=== PATIENT | male | born 1970 | race African-American/Black ===

== ENCOUNTER 2017-06-18 14:52 | Inpatient (IN) | payer BC ==
[2017-06-18] VITALS (8 sets, daily range): BP systolic 152–190; BP diastolic 93–109; PULSE 52–64; RESP 16–18; TEMP 98.1; O2SAT 97–100
[~2017-06-18 14:52] MED LIST: ASPI325T PO; ATOR10TA PO; CARV6.252 PO; LISI30TA44 PO
[2017-06-18] MEDS ORDERED: IOHEXOL 350 MG/ML 10 ML VIAL (for RAD DIAG) IVCONTRAST ONE (14:53)
[2017-06-18] MEDS ORDERED: ASPI-183 PO (15:16)
[2017-06-18] MEDS ORDERED: SODIUM CHLORIDE 0.9% FLUSH 10 ML FLUSH IVF PRN (15:45)
--- NOTE | 2017-06-18 15:56 | PD ---
HPI Chief Complaint: Neuro Symptoms/ Deficits Time Seen by Provider: 15:27 Travel History International Travel<30 days: No Contact w/Intl Traveler<30days: No Traveled to known affect area: No History of Present Illness HPI 47 yo M complains of weakness in the right arm. It was first noticed this morning at 6 am. It then resolved and started again about 5 hours prior to ER arrival. + R shoulder and R neck pain intermittently. No recent excessive use. No similar prior episodes. Last night patient slept on the right side, unusual for him. + Paresthesias with some sensory loss in the hand reported by patient. Timing constant. Severity moderate. PFSH Past Medical History Cardiovascular Problems: Yes (cad) Hypertension: Yes Past Surgical History Cardiac Surgery: Yes (CARDIAC CATH) Social History Alcohol Use: Yes (RARE) Tobacco Use: No (former) Substance Use: No Allergies-Medications (Allergen,Severity, Reaction): Coded Allergies: azithromycin (Unverified Allergy, Severe, 03/31/17) shellfish derived (Unverified Adverse Reaction, Intermediate, SOB, 03/31/17 ) Reported Meds & Prescriptions Reported Meds & Active Scripts Active Reported Aspirin 325 Mg Tab 325 Mg PO DAILY Review of Systems Except as stated in HPI: all other systems reviewed are Neg General / Constitutional: No: Fever Physical Exam Narrative GENERAL: 47 yo M, WNWD, moderate distress neuro deficit SKIN: Warm and dry. HEAD: Atraumatic. Normocephalic. EYES: Pupils equal and round. No scleral icterus. No injection or drainage. ENT: No nasal bleeding or discharge. Mucous membranes pink and moist. NECK: Trachea midline. No JVD. CARDIOVASCULAR: Regular rate and rhythm. RESPIRATORY: No accessory muscle use. Clear to auscultation. Breath sounds equal bilaterally. GASTROINTESTINAL: Abdomen soft, non-tender, nondistended. Hepatic and splenic margins not palpable. MUSCULOSKELETAL: Extremities without clubbing, cyanosis, or edema. No obvious deformities. NEUROLOGICAL: CN III-XII normal. RUE with intact elbow flexion and decreased elbow extension. Hand seed sorter decreased R>L. R wrist flexion decreased. R wrist extension grossly preserved. 2+ Radial artery bilaterally. PSYCHIATRIC: Appropriate mood and affect; insight and judgment normal. Data Data Last Documented VS Vital Signs Date Time Temp Pulse Resp B/P (MAP) Pulse Ox O2 Delivery O2 Flow Rate FiO2 06/18/17 23:00 62 16 163/97 (119) 97 Room Air 06/18/17 15:09 98.1 VS REVIEWED Orders Orders Electrocardiogram (06/18/17 15:32) Complete Blood Count With Diff (06/18/17 15:32) Basic Metabolic Panel (Bmp) (06/18/17 15:32) Drug Screen, Random Urine (06/18/17 15:32) Ct Brain W/O Iv Contrast(Rout) (06/18/17 15:32) Ecg Monitoring (06/18/17 15:32) Iv Access Insert/Monitor (06/18/17 15:32) Oximetry (06/18/17 15:32) Sodium Chloride 0.9% Flush (Ns Flush) (06/18/17 15:45) Hydromorphone Pf Inj (Dilaudid Pf Inj) (06/18/17 16:15) Cta Brain W Iv Contrast W 3d (06/18/17 16:20) Cta Neck W Iv Contrast W 3d (06/18/17 16:20) Iohexol 350 Inj (Omnipaque 350 Inj) (06/18/17 14:53) Admit Order (Ed Use Only) (06/18/17 ) 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 SUSY.Q8H (06/18/17 23:15) Diet Heart Healthy (06/19/17 Breakfast) Activity Oob With Assistance (06/18/17 23:15) Notify Dr: Other (06/18/17 23:15) Consult Neurology (06/18/17 ) Labs Laboratory Tests Test 06/18/17 15:40 06/18/17 18:23 White Blood Count 8.0 TH/MM3 Red Blood Count 4.58 MIL/MM3 Hemoglobin 13.2 GM/DL Hematocrit 39.9 % Mean Corpuscular Volume 87.1 FL Mean Corpuscular Hemoglobin 28.8 PG Mean Corpuscular Hemoglobin Concent 33.1 % Red Cell Distribution Width 12.9 % Platelet Count 172 TH/MM3 Mean Platelet Volume 10.1 FL Neutrophils (%) (Auto) 73.4 % Lymphocytes (%) (Auto) 16.2 % Monocytes (%) (Auto) 8.4 % Eosinophils (%) (Auto) 1.3 % Basophils (%) (Auto) 0.7 % Neutrophils # (Auto) 5.8 TH/MM3 Lymphocytes # (Auto) 1.3 TH/MM3 Monocytes # (Auto) 0.7 TH/MM3 Eosinophils # (Auto) 0.1 TH/MM3 Basophils # (Auto) 0.1 TH/MM3 CBC Comment DIFF FINAL Differential Comment Blood Urea Nitrogen 19 MG/DL Creatinine 1.10 MG/DL Random Glucose 83 MG/DL Calcium Level 8.9 MG/DL Sodium Level 138 MEQ/L Potassium Level 3.4 MEQ/L Chloride Level 102 MEQ/L Carbon Dioxide Level 26.4 MEQ/L Anion Gap 10 MEQ/L Estimat Glomerular Filtration Rate 86 ML/MIN Urine Opiates Screen NEG Urine Barbiturates Screen NEG Urine Amphetamines Screen NEG Urine Benzodiazepines Screen NEG Urine Cocaine Screen NEG Urine Cannabinoids Screen POS MDM Medical Decision Making Medical Screen Exam Complete: Yes Emergency Medical Condition: Yes Medical Record Reviewed: Yes Differential Diagnosis Peripheral palsy, cervical dissection, intracranial mass, TIA, CVA Narrative Course CBC & BMP Diagram 06/18/17 15:40 Calcium Level 8.9 Last Impressions Neck CTA 06/18/17 1620 Signed Impressions: Service Date/Time: Sunday, June 18, 2017 17:43 - CONCLUSION: Normal examination. Diogenes Mata MD Head CTA 06/18/17 1620 Signed Impressions: Service Date/Time: Sunday, June 18, 2017 17:43 - CONCLUSION: Normal examination. Diogenes Mata MD Head CT 06/18/17 1532 Signed Impressions: Service Date/Time: Sunday, June 18, 2017 17:39 - CONCLUSION: 1. No evidence of acute intracranial pathology. No masses are identified. Jose Francisco Palencia MD CTA imaging pending at time of sign out to Dr Haskins. Follow up CTA imaging with plan to discuss case with neurology pending results. Possible peripheral palsy. Additional Instructions: You have a choice when it comes to health care, and we are glad that you chose [facility]. Hopefully, we have met your expectations on today's visit. You are welcome to return to [facility] at any time, as we are committed to meeting the health care needs of our community. Med/Other Pt SpecificInfo: No Change to Meds Disposition: 01 DISCHARGE HOME Condition: Stable Stoney Trevino MD Jun 18, 2017 15:56
[2017-06-18 16:08] LABS: AUTOMATED NEUTROPHIL # 5.8 TH/MM3 (1.8-7.7); BASOPHIL # 0.1 TH/MM3 (0-0.2); BASOPHIL % 0.7 % (0.0-2.0); EOSINOPHIL # 0.1 TH/MM3 (0-0.4); EOSINOPHIL % 1.3 % (0.0-4.0); HEMATOCRIT 39.9 % (39.0-51.0); HEMO FLAGS DIFF FINAL; LYMPH % 16.2 % (9.0-44.0); LYMPHOCYTE # 1.3 TH/MM3 (1.0-4.8); MEAN CELL VOLUME 87.1 FL (80.0-100.0); MEAN CORPUSCULAR HEMOGLOBIN 28.8 PG (27.0-34.0); MEAN CORPUSCULAR HGB CONC 33.1 % (32.0-36.0); MONO % 8.4 % (0.0-8.0); NEUT % 73.4 % (16.0-70.0); PLATELET COUNT 172 TH/MM3 (150-450); RED BLOOD COUNT 4.58 MIL/MM3 (4.50-5.90); RED CELL DISTRIBUTION WIDTH 12.9 % (11.6-17.2)
[2017-06-18] MEDS ORDERED: HYDROmorphone HCL PF 1 MG/ML VIAL IV PUSH ONE (16:15)
[2017-06-18 16:55] LABS: BICARBONATE 26.4 MEQ/L (21.0-32.0); POTASSIUM 3.4 MEQ/L (3.5-5.1)
--- NOTE | 2017-06-18 18:02 | RADRPT ---
EXAM DATE/TIME: 06/18/2017 17:39 [facility] COMPARISON: No previous studies available for comparison. INDICATIONS : General weakness for one day. RADIATION DOSE: 31.38 CTDIvol (mGy) MEDICAL HISTORY : Hypertension. Cardiac. SURGICAL HISTORY : None. ENCOUNTER: Initial ACUITY: 1 day PAIN SCALE: 5/10 LOCATION: Bilateral cranial TECHNIQUE: Multiple contiguous axial images were obtained of the head. Using automated exposure control and adj ustment of the mA and/or kV according to patient size, radiation dose was kept as low as reasonably a chievable to obtain optimal diagnostic quality images. DICOM format image data is available electro nically for review and comparison. FINDINGS: CEREBRUM: The ventricles are normal for age. No evidence of midline shift, mass lesion, hemorrhage or acute in farction. No extra-axial fluid collections are seen. POSTERIOR FOSSA: The cerebellum and brainstem are intact. The 4th ventricle is midline. The cerebellopontine angle i s unremarkable. EXTRACRANIAL: The visualized portion of the orbits is intact. SKULL: The calvaria is intact. No evidence of skull fracture. CONCLUSION: 1. No evidence of acute intracranial pathology. No masses are identified. Jose Francisco Palencia MD on June 18, 2017 at 17:59 Board Certified Radiologist. This report was verified electronically.
--- NOTE | 2017-06-18 19:13 | RADRPT ---
EXAM DATE/TIME: 06/18/2017 17:43 [facility] COMPARISON: CT BRAIN W/O CONTRAST, June 18, 2017, 17:39. INDICATIONS : Right sided numbness. IV CONTRAST: 100 cc Omnipaque 350 (iohexol) IV ; Cumulative dose for multiple exams. RADIATION DOSE: 26.57 CTDIvol (mGy) ; Combined studies MEDICAL HISTORY : Cardiovascular disease. Hypertension. SURGICAL HISTORY : None. ENCOUNTER: Initial ACUITY: 1 day PAIN SCALE: 4/10 LOCATION: cranial Elevated flow velocities and ICA/CCA ratios have been found to correlate with increased degrees of vessel stenosis, calculated as percentage of diameter relative to a normal segment of distal ICA/CCA. TECHNIQUE: Volumetric scanning was performed using a multirow detector CT scanner. The data was post processed with a variety of visualization algorithms including full-volume maximum intensity projection, multip lanar sliding thin-slab reformation, curved-planar reformation, and surface-rendering techniques. Us ing automated exposure control and adjustment of the mA and/or kV according to patient size, radiatio n dose was kept as low as reasonably achievable to obtain optimal diagnostic quality images. DICOM f ormat image data is available electronically for review and comparison. FINDINGS: AORTIC ARCH: There is a three-vessel origin of the great vessels from the aorta. No evidence of ostial narrowing. RIGHT CAROTID: The common carotid artery is intact. The carotid bulb has a normal configuration without ulceration o r narrowing. The internal carotid artery lumen is smooth without stenosis. The external carotid ag ry is intact. LEFT CAROTID: The common carotid artery is intact. The carotid bulb has a normal configuration without ulceration or narrowing. The internal carotid artery lumen is smooth without stenosis. The external carotid ar merlene is intact. VERTEBRALS: The vertebral arteries have a symmetric diameter. No stenotic lesions are seen. CONCLUSION: Normal examination. Diogenes Mata MD on June 18, 2017 at 19:11 Board Certified Radiologist. This report was verified electronically.
--- NOTE | 2017-06-18 19:14 | RADRPT ---
EXAM DATE/TIME: 06/18/2017 17:43 [facility] COMPARISON: CTA CAROTID ARTERIES W 3D RECON, June 18, 2017, 17:43. CT BRAIN W/O CONTRAST, June 18, 2017, 17:39. INDICATIONS : Right sided weakness. IV CONTRAST: 100 cc Omnipaque 350 (iohexol) IV ; Cumulative dose for multiple exams. RADIATION DOSE: 26.57 CTDIvol (mGy) ; Combined studies MEDICAL HISTORY : Cardiovascular disease. Hypertension. SURGICAL HISTORY : None. ENCOUNTER: Initial ACUITY: 1 day PAIN SCALE: 4/10 LOCATION: cranial TECHNIQUE: Volumetric scanning was performed using a multi-row detector CT scanner. The data was post processed with a variety of visualization algorithms including full volume maximum intensity projection, multi -planar sliding thin slab reformation, curved planar reformation, and surface rendering techniques. Using automated exposure control and adjustment of the mA and/or kV according to patient size, radiat ion dose was kept as low as reasonably achievable to obtain optimal diagnostic quality images. DICO M format image data is available electronically for review and comparison. FINDINGS: There is excellent visualization of the major intracranial arteries out to the second-order branch ve ssels. There is no evidence for aneurysm, vessel truncation or stenosis, and no evidence for vascula r malformation. CONCLUSION: Normal examination. Diogenes Mata MD on June 18, 2017 at 19:12 Board Certified Radiologist. This report was verified electronically.
[2017-06-18] MEDS ORDERED: GADODIAMIDE PF 287 MG/ML 20 ML VIAL (for RAD MRI) IVCONTRAST ONE (23:19)
[2017-06-18] MEDS ORDERED: NALOXONE HCL 0.4 MG/ML AMP IV PUSH PRN (23:45)
[2017-06-18] MEDS ORDERED: SODIUM CHLORIDE 0.9% FLUSH 10 ML FLUSH IV FLUSH PRN (23:45)
[2017-06-18] MEDS ORDERED: ONDANSETRON HCL 4 MG/2 ML VIAL IVP PRN (23:45)
[2017-06-19] VITALS (11 sets, daily range): BP systolic 109–160; BP diastolic 65–96; PULSE 55–72; RESP 16–18; TEMP 97.9–98.5; O2SAT 95–98
--- NOTE | 2017-06-19 00:53 | PD ---
Physical Exam Date Seen by Provider: Jun 18, 2017 Time Seen by Provider: 22:00 Narrative accepted in transfer of care from Dr Trevino GENERAL: Well-developed well-nourished male in no acute distress no respiratory distress. SKIN: Warm and dry. NECK: Trachea midline. No JVD. MUSCULOSKELETAL: Extremities without clubbing, cyanosis, or edema. No obvious deformities. Intact range of motion of bilateral upper extremities at shoulders with internal/external rotation abduction and abduction flexion and extension; intact range of motion at the elbows bilaterally with flexion extension pronation and supination. Decreased range of motion secondary to effort and weakness per patient of bilateral wrists with wrist extension right greater than left wrist flexion intact decreased senior ui designer strength of the right hand minor decrease in senior ui designer strength of the left hand capillary refill brisk and less than 2 seconds per digit is redness no edema no increased warmth no pallor no coolness radial and ulnar pulses are 2+ to palpation bilaterally no tenderness to palpation of the muscle belly and muscle bellies are soft to palpation no soft tissue swelling and no firmness bilaterally. No deformity is noted. Bilateral lower extremity exam is found to be in normal range grossly NEUROLOGICAL: Awake and alert. No obvious cranial nerve deficits. Motor grossly within normal limits. Five out of 5 muscle strength in the legs right senior ui designer and wrist extension 4/5, left senior ui designer and wrist extension 4-5/5. Normal speech. PSYCHIATRIC: Appropriate mood and affect; insight and judgment normal. Data Data Last Documented VS Vital Signs Date Time Temp Pulse Resp B/P (MAP) Pulse Ox O2 Delivery O2 Flow Rate FiO2 06/18/17 23:00 62 16 163/97 (119) 97 Room Air 06/18/17 15:09 98.1 Orders Orders Electrocardiogram (06/18/17 15:32) Complete Blood Count With Diff (06/18/17 15:32) Basic Metabolic Panel (Bmp) (06/18/17 15:32) Drug Screen, Random Urine (06/18/17 15:32) Ct Brain W/O Iv Contrast(Rout) (06/18/17 15:32) Ecg Monitoring (06/18/17 15:32) Iv Access Insert/Monitor (06/18/17 15:32) Oximetry (06/18/17 15:32) Sodium Chloride 0.9% Flush (Ns Flush) (06/18/17 15:45) Hydromorphone Pf Inj (Dilaudid Pf Inj) (06/18/17 16:15) Cta Brain W Iv Contrast W 3d (06/18/17 16:20) Cta Neck W Iv Contrast W 3d (06/18/17 16:20) Iohexol 350 Inj (Omnipaque 350 Inj) (06/18/17 14:53) Admit Order (Ed Use Only) (06/18/17 ) 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 Installer / 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 SUSY.Q8H (06/18/17 23:15) Diet Heart Healthy (06/19/17 Breakfast) Activity Oob With Assistance (06/18/17 23:15) Notify Dr: Other (06/18/17 23:15) Consult Neurology (06/18/17 ) Labs Laboratory Tests Test 06/18/17 15:40 06/18/17 18:23 White Blood Count 8.0 TH/MM3 Red Blood Count 4.58 MIL/MM3 Hemoglobin 13.2 GM/DL Hematocrit 39.9 % Mean Corpuscular Volume 87.1 FL Mean Corpuscular Hemoglobin 28.8 PG Mean Corpuscular Hemoglobin Concent 33.1 % Red Cell Distribution Width 12.9 % Platelet Count 172 TH/MM3 Mean Platelet Volume 10.1 FL Neutrophils (%) (Auto) 73.4 % Lymphocytes (%) (Auto) 16.2 % Monocytes (%) (Auto) 8.4 % Eosinophils (%) (Auto) 1.3 % Basophils (%) (Auto) 0.7 % Neutrophils # (Auto) 5.8 TH/MM3 Lymphocytes # (Auto) 1.3 TH/MM3 Monocytes # (Auto) 0.7 TH/MM3 Eosinophils # (Auto) 0.1 TH/MM3 Basophils # (Auto) 0.1 TH/MM3 CBC Comment DIFF FINAL Differential Comment Blood Urea Nitrogen 19 MG/DL Creatinine 1.10 MG/DL Random Glucose 83 MG/DL Calcium Level 8.9 MG/DL Sodium Level 138 MEQ/L Potassium Level 3.4 MEQ/L Chloride Level 102 MEQ/L Carbon Dioxide Level 26.4 MEQ/L Anion Gap 10 MEQ/L Estimat Glomerular Filtration Rate 86 ML/MIN Urine Opiates Screen NEG Urine Barbiturates Screen NEG Urine Amphetamines Screen NEG Urine Benzodiazepines Screen NEG Urine Cocaine Screen NEG Urine Cannabinoids Screen POS MDM Medical Record Reviewed: Yes Supervised Visit with YRN: No Interpretation(s) Last Impressions Neck CTA 06/18/17 1620 Signed Impressions: Service Date/Time: Sunday, June 18, 2017 17:43 - CONCLUSION: Normal examination. Diogenes Mata MD Head CTA 06/18/17 1620 Signed Impressions: Service Date/Time: Sunday, June 18, 2017 17:43 - CONCLUSION: Normal examination. Diogenes Mata MD Head CT 06/18/17 1532 Signed Impressions: Service Date/Time: Sunday, June 18, 2017 17:39 - CONCLUSION: 1. No evidence of acute intracranial pathology. No masses are identified. Jose Francisco Palencia MD Differential Diagnosis accepted in transfer of care from Dr Trevino; please refer to his dictation Narrative Course accepted in transfer of care from Dr Trevino --follow up on pendnig CTA brain and neck with results to neurologist Dr Rodríguez CTA brain and neck "normal" per reading radiologist --this is shared with Dr Rodríguez --recommends admission with consult to Dr Rodríguez Physician Communication Physician Communication discussed with Dr Rodríguez; discussed with Dr Caballero Diagnosis Primary Impression: Bilateral arm weakness Admitting Information Admitting Physician Requests: Observation Additional Instruction: You have a choice when it comes to health care, and we are glad that you chose [facility]. Hopefully, we have met your expectations on today's visit. You are welcome to return to [facility] at any time, as we are committed to meeting the health care needs of our community. Disposition: 01 DISCHARGE HOME Condition: Stable Татьяна Haskins MD Jun 19, 2017 00:53
[2017-06-19] MEDS ORDERED: cloNIDine HCL 0.2 MG TAB PO PRN (01:15)
--- NOTE | 2017-06-19 04:07 | HHI.HP ---
HPI Service [facility] Primary Care Physician Gelacio Deal, Admission Diagnosis Bilateral arm weakness Diagnoses: Travel History International Travel<30 Days: No Contact w/Intl Traveler <30 Da: No Traveled to Known Affected Are: No History of Present Illness 47-year-old male presents with a 1 day history of bilateral upper extremity weakness. The patient states that around 6:30 yesterday morning he started having sharp pains in his bilateral shoulders which has occurred before. He then states that he noticed that both of his hands and forearms became weak and he was no longer able to lift anything or close his hands. This is a new symptom for him. He continues to have problems with extension of his right fingers and has significant decreased invas tech strength. He reports the pain in his shoulders is still present. Review of Systems Denies fever or chills Denies blurry vision, otorrhea, rhinorrhea Denies sore throat and cough No chest pain, palpitations, shortness of breath No abdominal pain Denies constipation/diarrhea/nausea/vomiting Denies muscle pain/weakness No rashes Past Family Social History Past Medical History History of hypertension although patient is now off all medications History of hyperlipidemia, patient no longer takes a statin Past Surgical History Cardiac catheterization 2 years ago, no stents placed Vasectomy Reported Medications Prescription THC for hypertension Allergies: Coded Allergies: azithromycin (Unverified Allergy, Severe, 03/31/17) shellfish derived (Unverified Adverse Reaction, Intermediate, SOB, 03/31/17 ) Family History Mother is prediabetic. Father with previous SC, hypertension Social History Quit smoking in 2010 (15 pack year history). Occasional alcohol. Prescription marijuana. Denies other illicit drugs Physical Exam Vital Signs Vital Signs Date Time Temp Pulse Resp B/P (MAP) Pulse Ox O2 Delivery O2 Flow Rate FiO2 06/19/17 03:37 68 16 136/81 (99) 96 Room Air 06/19/17 02:30 72 16 154/96 (115) 96 Room Air 06/19/17 01:30 72 16 157/96 (116) 96 Room Air 06/18/17 23:00 62 16 163/97 (119) 97 Room Air 06/18/17 22:00 54 16 158/94 (115) 99 Room Air 06/18/17 21:00 60 16 152/95 (114) 98 Room Air 06/18/17 20:00 60 16 161/97 (118) 100 Room Air 06/18/17 17:58 18 06/18/17 17:57 64 18 157/93 (114) 99 Room Air 06/18/17 16:48 54 16 190/109 (136) 98 Room Air 06/18/17 15:37 17 100 Room Air 06/18/17 15:34 55 17 100 Room Air 06/18/17 15:09 98.1 52 16 181/108 (132) 97 Physical Exam GENERAL: Nilda male lying in bed SKIN: No rashes, ecchymoses or lesions. Cool and dry. HEAD: Atraumatic. Normocephalic. No temporal or scalp tenderness. EYES: Pupils equal round and reactive. Extraocular motions intact. No scleral icterus. No injection or drainage. ENT: Nose without bleeding, purulent drainage or septal hematoma. Throat without erythema, tonsillar hypertrophy or exudate. Uvula midline. Airway patent. NECK: Trachea midline. No JVD or lymphadenopathy. Supple, nontender, no meningeal signs. CARDIOVASCULAR: Regular rate and rhythm without murmurs, gallops, or rubs. RESPIRATORY: Clear to auscultation. Breath sounds equal bilaterally. No wheezes , rales, or rhonchi. GASTROINTESTINAL: Abdomen soft, non-tender, nondistended. No hepato-splenomegaly , or palpable masses. No guarding. MUSCULOSKELETAL: Extremities without clubbing, cyanosis, or edema. No joint tenderness, effusion, or edema noted. No calf tenderness. NEUROLOGICAL: Awake and alert. Cranial nerves II through XII intact. Normal speech. Patient with 2/5 invas tech strength of left hand and 3/5 invas tech strength right hand. Unable to fully extend fingers on right hand. 3/5 biceps strength. Unable to fully extend arms at the shoulders. Lower extremities within normal limits. Laboratory Laboratory Tests Test 06/18/17 15:40 06/18/17 18:23 White Blood Count 8.0 Red Blood Count 4.58 Hemoglobin 13.2 Hematocrit 39.9 Mean Corpuscular Volume 87.1 Mean Corpuscular Hemoglobin 28.8 Mean Corpuscular Hemoglobin Concent 33.1 Red Cell Distribution Width 12.9 Platelet Count 172 Mean Platelet Volume 10.1 Neutrophils (%) (Auto) 73.4 Lymphocytes (%) (Auto) 16.2 Monocytes (%) (Auto) 8.4 Eosinophils (%) (Auto) 1.3 Basophils (%) (Auto) 0.7 Neutrophils # (Auto) 5.8 Lymphocytes # (Auto) 1.3 Monocytes # (Auto) 0.7 Eosinophils # (Auto) 0.1 Basophils # (Auto) 0.1 CBC Comment DIFF FINAL Differential Comment Blood Urea Nitrogen 19 Creatinine 1.10 Random Glucose 83 Calcium Level 8.9 Sodium Level 138 Potassium Level 3.4 Chloride Level 102 Carbon Dioxide Level 26.4 Anion Gap 10 Estimat Glomerular Filtration Rate 86 Urine Opiates Screen NEG Urine Barbiturates Screen NEG Urine Amphetamines Screen NEG Urine Benzodiazepines Screen NEG Urine Cocaine Screen NEG Urine Cannabinoids Screen POS Result Diagram: 06/18/17 1540 06/18/17 1540 Caprini VTE Risk Assessment Caprini VTE Risk Assessment: No/Low Risk (score <= 1) Caprini Risk Assessment Model Point Value = 1 Point Value = 2 Point Value = 3 Point Value = 5 Age 41-60 Minor surgery BMI > 25 kg/m2 Swollen legs Varicose veins or History of unexplained or recurrent spontaneous Oral contraceptives or hormone replacement Sepsis (< 1 month) Serious lung disease, including pneumonia (< 1 month) Abnormal pulmonary function Acute myocardial infarction Congestive heart failure (< 1 month) History of inflammatory bowel disease Medical patient at bed rest Age 61-74 Arthroscopic surgery Major open surgery (> 45 min) Laparoscopic surgery (> 45 min) Malignancy Confined to bed (> 72 hours) Immobilizing plaster cast Central venous access Age >= 75 History of VTE Family history of VTE Factor V Leiden Prothrombin [id number] Lupus anticoagulant Anticardiolipin antibodies Elevated serum homocysteine Heparin-induced thrombocytopenia Other congenital or acquired thrombophilia Stroke (< 1 month) Elective arthroplasty Hip, pelvis, or leg fracture Acute spinal cord injury (< 1 month) Prophylaxis Regimen Total Risk Factor Score Risk Level Prophylaxis Regimen 0-1 Low Early ambulation 2 Moderate Order ONE of the following: *Sequential Compression Device (SCD) *Heparin 5000 units SQ BID 3-4 Higher Order ONE of the following medications: *Heparin 5000 units SQ TID *Enoxaparin/Lovenox 40 mg SQ daily (WT < 150 kg, CrCl > 30 mL/min) *Enoxaparin/Lovenox 30 mg SQ daily (WT < 150 kg, CrCl > 10-29 mL/min) *Enoxaparin/Lovenox 30 mg SQ BID (WT < 150 kg, CrCl > 30 mL/min) AND/OR *Sequential Compression Device (SCD) 5 or more Highest Order ONE of the following medications: *Heparin 5000 units SQ TID (Preferred with Epidurals) *Enoxaparin/Lovenox 40 mg SQ daily (WT < 150 kg, CrCl > 30 mL/min) *Enoxaparin/Lovenox 30 mg SQ daily (WT < 150 kg, CrCl > 10-29 mL/min) *Enoxaparin/Lovenox 30 mg SQ BID (WT < 150 kg, CrCl > 30 mL/min) AND *Sequential Compression Device (SCD) Assessment and Plan Assessment and Plan 47-year-old male presents with a 1 day history of bilateral hand weakness 1. Bilateral hand weakness Head CT, neck CTA of the head CTA within normal limits Consulted neurology, Dr. Rodríguez request that the patient be admitted for further workup Appreciate recommendations 2. Hypertension Patient states his blood pressure at home is normally not high however he has been hypertensive since his arrival Controlled with when necessary clonidine yet Will start Bystolic Patient will need to follow-up with his primary care physician regarding his hypertension FEN Heart healthy diet Monitor electrolytes SCDs An Caballero MD Jun 19, 2017 04:07
[2017-06-19 08:21] LABS: AUTOMATED NEUTROPHIL # 3.2 TH/MM3 (1.8-7.7); BASOPHIL # 0.1 TH/MM3 (0-0.2); BASOPHIL % 1.1 % (0.0-2.0); EOSINOPHIL # 0.2 TH/MM3 (0-0.4); EOSINOPHIL % 3.6 % (0.0-4.0); HEMATOCRIT 40.1 % (39.0-51.0); HEMO FLAGS DIFF FINAL; LYMPH % 26.6 % (9.0-44.0); LYMPHOCYTE # 1.4 TH/MM3 (1.0-4.8); MEAN CELL VOLUME 86.9 FL (80.0-100.0); MEAN CORPUSCULAR HEMOGLOBIN 29.2 PG (27.0-34.0); MEAN CORPUSCULAR HGB CONC 33.6 % (32.0-36.0); MONO % 9.7 % (0.0-8.0); PLATELET COUNT 157 TH/MM3 (150-450); RED BLOOD COUNT 4.61 MIL/MM3 (4.50-5.90); RED CELL DISTRIBUTION WIDTH 13.1 % (11.6-17.2); WHITE BLOOD COUNT 5.4 TH/MM3 (4.0-11.0)
[2017-06-19 08:44] LABS: BICARBONATE 26.1 MEQ/L (21.0-32.0); POTASSIUM 3.7 MEQ/L (3.5-5.1)
[2017-06-19 08:47] LABS: HDL CHOLESTEROL 44.7 MG/DL (40.0-60.0)
[2017-06-19] MEDS: SODIUM CHLORIDE 0.9% FLUSH 10 ML FLUSH IV FLUSH SCH ×2 (09:02→20:45)
[2017-06-19] MEDS: NEBIVOLOL 5 MG TAB PO SCH (09:02)
--- NOTE | 2017-06-19 10:45 | HHI.PR ---
Subjective Remarks Follow up for BUE numbness/weakness. 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 He states he couldn't stock controller or lift anything. He called his who advised him to go to the ER. 911 was called. He states he did developed diffuse posterior neck pain while in the ambulance. Denies any back pain or lower extremity weakness/numbness. He is able to ambulate without difficulty. Denies any headache, blurred vision, or slurred speech. Denies any recent fevers/chills, cough, congestion, sore throat , or nausea/vomiting. This has never happened before. Currently he is seen in observation unit, and complains of continued bilateral upper extremity weakness and mild paresthesias. He states the right arm is worse than the left. He does feel his symptoms have mildly improved compared to yesterday. He has no other medical complaints at this time. Objective Vitals Vital Signs Date Time Temp Pulse Resp B/P (MAP) Pulse Ox O2 Delivery O2 Flow Rate FiO2 06/19/17 07:24 98.3 61 18 118/79 (92) 95 06/19/17 05:03 98.1 62 17 134/89 (104) 95 06/19/17 03:45 60 06/19/17 03:37 68 16 136/81 (99) 96 Room Air 06/19/17 02:30 72 16 154/96 (115) 96 Room Air 06/19/17 01:30 72 16 157/96 (116) 96 Room Air 06/18/17 23:00 62 16 163/97 (119) 97 Room Air 06/18/17 22:00 54 16 158/94 (115) 99 Room Air 06/18/17 21:00 60 16 152/95 (114) 98 Room Air 06/18/17 20:00 60 16 161/97 (118) 100 Room Air 06/18/17 17:58 18 06/18/17 17:57 64 18 157/93 (114) 99 Room Air 06/18/17 16:48 54 16 190/109 (136) 98 Room Air 06/18/17 15:37 17 100 Room Air 06/18/17 15:34 55 17 100 Room Air 06/18/17 15:09 98.1 52 16 181/108 (916) 23 Result Diagram: 06/19/17 0802 06/19/17 0802 Imaging Last Impressions Neck CTA 06/18/17 1620 Signed Impressions: Service Date/Time: Sunday, June 18, 2017 17:43 - CONCLUSION: Normal examination. Diogenes Mata MD Head CTA 06/18/17 1620 Signed Impressions: Service Date/Time: Sunday, June 18, 2017 17:43 - CONCLUSION: Normal examination. Diogenes Mata MD Head CT 06/18/17 1532 Signed Impressions: Service Date/Time: Sunday, June 18, 2017 17:39 - CONCLUSION: 1. No evidence of acute intracranial pathology. No masses are identified. Jose Francisco Palencia MD Objective Remarks GENERAL: Well-nourished, well-developed middle aged male patient in [facility]. SKIN: Warm and dry. No rash. HEENT: Normocephalic. Atraumatic.Pupils equal and round. Mucous membranes pink and moist. NECK: Supple. Trachea midline. CARDIOVASCULAR: Regular rate and rhythm. S1, S2 noted. No murmur appreciated. RESPIRATORY: No accessory muscle use. Clear to auscultation. Breath sounds equal bilaterally. GASTROINTESTINAL: Abdomen soft, non-tender, nondistended. Normoactive bowel sounds x4. MUSCULOSKELETAL: No obvious deformities. Extremities without clubbing, cyanosis , or edema. NEUROLOGICAL: Awake and alert. No obvious cranial nerve deficits. 3/5 strength of bilateral upper extremities, worse with stock controller strength and slightly worse with RUE compared to the LUE. 5/5 muscle strength in bilateral lower extremities. Bilateral upper and lower extremity sensation equal and intact. Normal speech. No pronator drift. PSYCHIATRIC: Appropriate mood and affect; insight and judgment normal. Medications and IVs Current Medications Medications (Trade) Dose Ordered Sig/Ryan Route Start Time Stop Time Status Last Admin (NS Flush) 2 ml UNSCH PRN IV FLUSH 06/18/17 23:45 (NS Flush) 2 ml BID IV FLUSH 06/19/17 09:00 06/19/17 09:02 (Tylenol) 650 mg Q4H PRN PO 06/18/17 23:45 (Zofran Inj) 4 mg Q6H PRN IVP 06/18/17 23:45 (Narcan Inj) 0.4 mg UNSCH PRN IV PUSH 06/18/17 23:45 (Catapres) 0.2 mg Q6H PRN PO 06/19/17 01:15 (Bystolic) 5 mg DAILY PO 06/19/17 09:00 06/19/17 09:02 A/P Problem List: (1) Bilateral arm weakness ICD Code: R29.898 - Other symptoms and signs involving the musculoskeletal system Status: Acute Assessment and Plan 47-year-old male with no significant past medical history presents with a 1 day history of bilateral upper extremity weakness and numbness Bilateral Upper Extremity Weakness/Numbness: unclear etiology, rule out CVA vs cervical spine etiology. -Head CT and Head/Neck CTA images reviewed, no acute findings. -Consult neurology, Dr. Rodríguez contacted from ER, recommended admission for further work up -Continue neuro checks -Consult PT/OT -consider C-spine MRI, will defer to neurology Accelerated Hypertension: BP 190/109 in the ED. Patient denies history of hypertension at home although BP has been elevated here, possibly stress/ hospital induced. -patient started on Bystolic 5mg bid however BP improved prior to initiating antihypertensive -continue to monitor BP, adjust antihypertensive as needed -continue clonidine prn -needs outpatient f/up with PCP Hyperlipidemia: lipid panel revealed elevated cholesterol 212 and LDL 141 -will start on pravastatin 20mg hs -needs outpatient f/up with PCP DVT Prophylaxis: teds/SCDs Discharge Planning Discharge pending PT/OT evaluation, neuro evaluation, and further clinical improvement. Vicky Jasso PA-C Jun 19, 2017 10:45
--- NOTE | 2017-06-19 12:35 | RADRPT ---
EXAM DATE/TIME: 06/19/2017 11:34 [facility] COMPARISON: No previous studies available for comparison. INDICATIONS : Bilateral upper extremity pain. CONTRAST: 13 cc Omniscan (gadodiamide) IV MEDICAL HISTORY : Hypertension. Cardiovascular disease SURGICAL HISTORY : None. ENCOUNTER: Initial ACUITY: 1 day PAIN SCORE: 5/10 LOCATION: [facility] TECHNIQUE: Multiplanar, multisequence MRI examination of the cervical spine was performed. FINDINGS: No fractures or subluxations are seen of the cervical spine. Vertebral bodies have normal height. Vis ualized portions of the posterior fossa are grossly unremarkable. C2-C3: The disc is desiccated but otherwise within normal limits. Mild ossification of the posterior longitu dinal ligament noted and very mild bilateral uncovertebral and facet osteoarthritis. No foraminal or spinal stenosis. C3-C4: The disc is desiccated and has moderate loss of height. Reactive appearing endplate marrow edema. The re is a small, broad/diffuse posterior disc osteophyte complex and mild to moderate bilateral uncover tebral and facet osteoarthritis. There is mild effacement of the anterior aspect of the thecal sac wi thout cord compression or cord signal abnormality. There is mild bilateral foraminal stenosis. C4-C5: The disc is desiccated and has moderate loss of height. There is reactive appearing endplate marrow e salvador. A small, broad/diffuse disc osteophyte complex is present and there is moderate bilateral uncov ertebral and facet osteoarthritis. Mild spinal stenosis without cord compression or cord signal abnor mality. There is mild to moderate right and mild left foraminal stenosis. C5-C6: The disc is desiccated and has severe loss of height. Mild endplate marrow edema noted. Moderate, bro ad/diffuse disc osteophyte complex present and there is moderate to severe bilateral uncovertebral an d facet osteoarthritis. There is mild to moderate spinal stenosis without cord compression in the kavin ged position. There is moderate to severe right and severe left foraminal stenosis. C6-C7: The disc is desiccated and has severe loss of height. There is reactive appearing endplate marrow madhuri ma. Small, broad/diffuse disc osteophyte complex present and there is right greater than left uncover tebral and facet osteoarthritis. There is mild spinal stenosis without cord compression. There is mod erate right and mild left foraminal stenosis. C7-T1: The thecal sac has a normal configuration. There is no evidence of disc herniation or spinal canal s tenosis. The neural foramina are patent bilaterally. Patchy T2 central cord signal abnormality seen from C3/C4 through C7/T1 the, likely edema or myelomal acia. Reactive marrow edema and mild enhancement of the vertebral body endplates from C3/C4-C6/C7. There is no abnormal enhancement otherwise. CONCLUSION: 1. Multilevel cervical spine degenerative changes as detailed above. 2. High-grade bilateral foraminal stenosis at C5/C6. Also considerable right foraminal stenosis at C6 /C7. 3. Mild to moderate spinal stenosis at C5/C6 and mild spinal stenosis at C3/C4, C4/C5 and C6/C7. No c ord compression in the imaged position but there is patchy cord edema and/or myelomalacia from C3/C4 through C7/T1. 4. Marrow edema and reactive enhancement of the vertebral body endplates from C3/C4-C6/C7. No fractur e or subluxation. 5. Incidentally seen marked tortuosity of the internal carotid arteries. Gelacio Kunz MD on June 19, 2017 at 12:22 Board Certified Radiologist. This report was verified electronically.
[2017-06-19] MEDS: ACETAMINOPHEN 325 MG TAB PO PRN ×2 (12:52→23:37)
--- NOTE | 2017-06-19 13:34 | MB ---
cc: ALINA IQBAL MD DATE OF CONSULTATION 06/19/17 REASON FOR CONSULTATION Arm weakness. HISTORY OF PRESENT ILLNESS Mr. Glover is a 47-year-old -[place] male who presents to [facility] Emergency Room for 1 day history of a brief episode of severe lower back pain associated with bilateral upper extremity weakness, right greater than the left. The patient states that he has had episodes of brief short lasting sudden sharp pain for 2 years duration where he would suddenly feel severe pain between the shoulder blades burning in character that lasts 10- 15 seconds, tends to radiate down to the both upper extremities followed by mild weakness and typically, "goes away." He usually try to bend over to relieve the pain in the arms. The patient cannot think of any relation or correlation to a certain movement, exercise, dehydration or any other triggering factor. The who was at the bedside states that he has had neck trauma in the past. With no sequela. The patient denies chronic neck pain. He only endorses those brief episodes that are infrequent and he states that he talked about it with the primary care physician but being so infrequent made him just not follow it up. The also states that may be sometimes they are stress-related. During the episode the patient other than the pain the patient feels a racing heart. Denies acid reflux, chest pain or profuse sweating during the episode. What made him come yesterday is the episode was recurrent and it was more intense, however short-lived and this was followed by arm weakness, mainly the right upper extremity with pain in the elbow and right hand. He denies sensory symptoms, sphincter control disturbances and he also endorses pain in both shoulders. REVIEW OF SYSTEMS A 12-point review of systems negative except for what is stated in the HPI. PAST MEDICAL HISTORY Hypertension, hyperlipidemia, "blood clots." PAST SURGICAL HISTORY Cardiac catheterization 2 years ago with no stents placed. Vasectomy. MEDICATIONS THC for hypertension. ALLERGIES AZITHROMYCIN AND SHELLFISH. FAMILY HISTORY Mother is prediabetic, father [place] and hypertension. SOCIAL HISTORY Quit smoking in 2010. Occasional alcohol, prescription marijuana. Denies other illicit drugs. PHYSICAL EXAMINATION GENERAL: Awake, alert, not in distress. is at the bedside, good historian. HEENT: Atraumatic, normocephalic. Intact hearing and intact vision. NECK: No stiffness in the neck. No limitation of movement. No carotid bruit. CARDIOVASCULAR: Regular rate and rhythm. RESPIRATORY: Clear to auscultation. No wheezes. GASTROINTESTINAL: Soft, nontender, nondistended. MUSCULOSKELETAL: No clubbing, cyanosis or edema. There is very mild pain on moving the right shoulder and right elbow. However, he moves extremities equally. NEUROLOGICAL: Awake, alert, oriented to time, person and place. No dysarthria. No dysphasia. Cranial nerves II-XII are grossly intact. Muscle strength 5/5 bilateral shoulder, elbow, however, right hand circuitry negative inspector and finger extensors are 4+/5 with give-way due to pain. Left upper extremity 5-/5 over the wrist extensors. Sensation is intact bilateral symmetrical. Lower extremities 5/5. Intact sensation, reflexes 2+. Plantars bilaterally downgoing. [id number] is intact. Uepz-td-nfps is intact. PSYCHIATRIC: Normal mood and behavior, cooperative. No hallucinations. LABORATORY DATA WBC 5.4, hemoglobin 13.5, platelet of 157, sodium 139, potassium 3.7, BUN 22, creatinine 1.26, random glucose 122, cholesterol 212, LDL 141, HDL 44.7, UDS positive for cannabinoids. DIAGNOSTIC IMAGING: - Head CT scan no evidence of acute intracranial abnormality. No masses are identified. Neck CTA/ head CTA were reported as a normal examination. DIAGNOSTIC IMPRESSION 1. Chronic neck pain and bilateral shoulder pain. 2. Brief episodes of sharp neck pain radiating both shoulders with weakness and pain in the upper extremities, right greater than the left. Preserved reflexes. 3. Hypertension. 4. Hyperlipidemia. PLAN 1. A cervical spine MRI with and without contrast to rule out possible intramedullary/extramedullary lesion. 2. Continue pain management as per attending team. 3. DVT prophylaxis. 4. GI prophylaxis. 5. Management of blood pressure. Thank you for the opportunity to participate in the care of your patient. MD MIRANDA Ness/RODRIGUEZ /12:08 PM /1:10 PM LORE
[2017-06-19] MEDS: PRAVASTATIN SOD 20 MG TAB PO SCH (20:45)
[2017-06-20] VITALS (7 sets, daily range): BP systolic 121–146; BP diastolic 78–97; PULSE 50–69; RESP 18; TEMP 97.5–98.4; O2SAT 95–96
[2017-06-20] MEDS: SODIUM CHLORIDE 0.9% FLUSH 10 ML FLUSH IV FLUSH SCH ×2 (08:54→21:12)
[2017-06-20] MEDS: NEBIVOLOL 5 MG TAB PO SCH (08:54)
--- NOTE | 2017-06-20 09:02 | EKG ---
Date Performed: 06/18/2017 Time Performed: 15:32:14 PTAGE: 47 years EKG: SINUS BRADYCARDIA NONSPECIFIC T-WAVE ABNORMALITY Compared to prior tracing no significant c hange BORDERLINE ECG PREVIOUS TRACING : 05/14/15 DOCTOR: Harman Briggs Interpretating Date/Time 06/20/2017 09:00:58
--- NOTE | 2017-06-20 09:16 | HHI.PR ---
Subjective Remarks Follow up for BUE weakness/paresthesias. The patient reports continued weakness throughout bilateral upper extremities, although slightly improved compared to yesterday. Right hand miller head strip still worse than the left. He continues to have mild pain throughout bilateral shoulders. He denies any numbness/weakness of bilateral legs. He has no other medical complaints at this time. Objective Vitals Vital Signs Date Time Temp Pulse Resp B/P (MAP) Pulse Ox O2 Delivery O2 Flow Rate FiO2 06/20/17 07:17 97.6 50 18 146/97 (113) 95 06/20/17 03:57 98.0 51 18 121/78 (92) 96 06/19/17 23:29 98.0 67 18 109/73 (85) 97 06/19/17 20:28 98.5 64 18 113/67 (82) 97 06/19/17 15:15 55 06/19/17 15:12 97.9 59 18 160/65 (96) 98 I/O 06/19/17 06/19/17 06/19/17 06/20/17 06/20/17 06/20/17 07:00 15:00 23:00 07:00 15:00 23:00 Intake Total 500 ml Output Total 200 ml Balance 500 ml -200 ml Intake Oral 500 ml Output Urine Total 200 ml # Voids 1 3 1 # Bowel Movements 0 Result Diagram: 06/19/17 0802 06/19/17 0802 Imaging Last Impressions Cervical Spine MRI 06/19/17 0000 Signed Impressions: Service Date/Time: Monday, June 19, 2017 11:34 - CONCLUSION: 1. Multilevel cervical spine degenerative changes as detailed above. 2. High- grade bilateral foraminal stenosis at C5/C6. Also considerable right foraminal stenosis at C6/C7. 3. Mild to moderate spinal stenosis at C5/C6 and mild spinal stenosis at C3/C4, C4/C5 and C6/C7. No cord compression in the imaged position but there is patchy cord edema and/or myelomalacia from C3/C4 through C7/T1. 4. Marrow edema and reactive enhancement of the vertebral body endplates from C3/C4-C6/C7. No fracture or subluxation. 5. Incidentally seen marked tortuosity of the internal carotid arteries. Gelacio Kunz MD Neck CTA 06/18/17 1620 Signed Impressions: Service Date/Time: Sunday, June 18, 2017 17:43 - CONCLUSION: Normal examination. Diogenes Mata MD Head CTA 06/18/17 1620 Signed Impressions: Service Date/Time: Sunday, June 18, 2017 17:43 - CONCLUSION: Normal examination. Diogenes Mata MD Head CT 06/18/17 1532 Signed Impressions: Service Date/Time: Sunday, June 18, 2017 17:39 - CONCLUSION: 1. No evidence of acute intracranial pathology. No masses are identified. Jose Francisco Palencia MD Objective Remarks GENERAL: Well-nourished, well-developed middle aged male patient in [facility]. SKIN: Warm and dry. No rash. HEENT: Normocephalic. Atraumatic.Pupils equal and round. Mucous membranes pink and moist. NECK: Supple. Trachea midline. Nontender. CARDIOVASCULAR: Regular rate and rhythm. S1, S2 noted. No murmur appreciated. RESPIRATORY: No accessory muscle use. Clear to auscultation. Breath sounds equal bilaterally. GASTROINTESTINAL: Abdomen soft, non-tender, nondistended. Normoactive bowel sounds x4. MUSCULOSKELETAL: No obvious deformities. Extremities without clubbing, cyanosis , or edema. NEUROLOGICAL: Awake and alert. No obvious cranial nerve deficits. 3/5 strength of bilateral upper extremities, worse with miller head strength and slightly worse with RUE compared to the LUE. 5/5 muscle strength in bilateral lower extremities. Bilateral upper and lower extremity sensation equal and intact. Normal speech. No pronator drift. PSYCHIATRIC: Appropriate mood and affect; insight and judgment normal. Medications and IVs Current Medications Medications (Trade) Dose Ordered Sig/Ryan Route Start Time Stop Time Status Last Admin (NS Flush) 2 ml UNSCH PRN IV FLUSH 06/18/17 23:45 (NS Flush) 2 ml BID IV FLUSH 06/19/17 09:00 06/20/17 08:54 (Tylenol) 650 mg Q4H PRN PO 06/18/17 23:45 06/19/17 23:37 (Zofran Inj) 4 mg Q6H PRN IVP 06/18/17 23:45 (Narcan Inj) 0.4 mg UNSCH PRN IV PUSH 06/18/17 23:45 (Catapres) 0.2 mg Q6H PRN PO 06/19/17 01:15 (Bystolic) 5 mg DAILY PO 06/19/17 09:00 06/20/17 08:54 (Pravachol) 20 mg HS PO 06/19/17 21:00 06/19/17 20:45 A/P Problem List: (1) Bilateral arm weakness ICD Code: R29.898 - Other symptoms and signs involving the musculoskeletal system Status: Acute Assessment and Plan 47-year-old male with no significant past medical history presents with a 1 day history of bilateral upper extremity weakness and numbness Bilateral Upper Extremity Weakness/Numbness: rule out CVA vs cervical spine etiology. Head CT and Head/Neck CTA images reviewed, no acute findings. C-spine MRI images reviewed, shows high-grade bilateral foraminal stenosis at C5/C6; considerable right foraminal stenosis at C6/C7; Mild to moderate spinal stenosis at C5/C6 and mild spinal stenosis at C3/C4, C4/C5 and C6/C7; No cord compression in the imaged position but there is patchy cord edema and/or myelomalacia from C3/C4 through C7/T1; Marrow edema and reactive enhancement of the vertebral body endplates from C3/C4-C6/C7; No fracture or subluxation. -Consult neurology, appreciate recommendations from Dr. Rodríguez -Continue neuro checks -Consult PT/OT -Consult neurosurgery Accelerated Hypertension: BP 190/109 in the ED. Patient denies history of hypertension at home although BP has been elevated here, possibly stress/ hospital induced. -patient started on Bystolic 5mg bid -continue to monitor BP, adjust antihypertensive as needed -continue clonidine prn -needs outpatient f/up with PCP Hyperlipidemia: lipid panel revealed elevated cholesterol 212 and LDL 141 -started on pravastatin 20mg hs -needs outpatient f/up with PCP DVT Prophylaxis: teds/SCDs Discharge Planning Discharge pending PT/OT evaluation, neurosurgery evaluation, and further clinical improvement. Patient still with persistent BUE weakness. Vicky Jasso PA-C Jun 20, 2017 9:16 am
[2017-06-20] MEDS: ACETAMINOPHEN 325 MG TAB PO PRN (10:31)
--- NOTE | 2017-06-20 10:43 | HHI.PR ---
Review/Management Diagnosis 1. Chronic neck pain and bilateral shoulder pain. 2. Cervical myelopathy 3. Hypertension. 4. Hyperlipidemia. Plan 1. Neuro checks Q4h 2. Continue pain management as per attending team. 3. DVT prophylaxis. 4. GI prophylaxis. 5. Management of blood pressure. 6. Consult neurosurgery/spine surgery, recommendations are appreciated Diagnosis/Plan: Subjective Subjective Comments No acute events reported MRI cervical spine revealed multiple levels degenerative disc with cord edema and signal abnormality, high grade stenosis Still complains pain in the neck, weakens and numbness of right hand at bed side Active Medications Current Medications Medications (Trade) Dose Ordered Sig/Ryan Route Start Time Stop Time Status Last Admin (NS Flush) 2 ml UNSCH PRN IV FLUSH 06/18/17 23:45 (NS Flush) 2 ml BID IV FLUSH 06/19/17 09:00 06/20/17 08:54 (Tylenol) 650 mg Q4H PRN PO 06/18/17 23:45 06/20/17 10:31 (Zofran Inj) 4 mg Q6H PRN IVP 06/18/17 23:45 (Narcan Inj) 0.4 mg UNSCH PRN IV PUSH 06/18/17 23:45 (Catapres) 0.2 mg Q6H PRN PO 06/19/17 01:15 (Bystolic) 5 mg DAILY PO 06/19/17 09:00 06/20/17 08:54 (Pravachol) 20 mg HS PO 06/19/17 21:00 06/19/17 20:45 Allergies Allergies Coded Allergies azithromycin (Unverified Allergy, Severe, 03/31/17) shellfish derived (Unverified Adverse Reaction, Intermediate, SOB, 03/31/17) Review of Systems All other ROS: ROS reviewed as documented in chart Exam I&O / VS Vital Signs Date Time Temp Pulse Resp B/P (MAP) Pulse Ox O2 Delivery O2 Flow Rate FiO2 06/20/17 07:17 97.6 50 18 146/97 (113) 95 06/20/17 03:57 98.0 51 18 121/78 (92) 96 06/19/17 23:29 98.0 67 18 109/73 (85) 97 06/19/17 20:28 98.5 64 18 113/67 (82) 97 06/19/17 15:15 55 06/19/17 15:12 97.9 59 18 160/65 (96) 98 Exam Comments GENERAL: Awake, alert, not in distress. is at the bedside HEENT: Atraumatic, normocephalic. Intact hearing and intact vision. NECK: No stiffness in the neck. No limitation of movement. No carotid bruit. CARDIOVASCULAR: Regular rate and rhythm. RESPIRATORY: Clear to auscultation. No wheezes. GASTROINTESTINAL: Soft, nontender, nondistended. MUSCULOSKELETAL: No clubbing, cyanosis or edema. Mild pain on moving the right shoulder and right elbow. However, he moves extremities equally. NEUROLOGICAL: Awake, alert, oriented to time, person and place. No dysarthria. No dysphasia. Cranial nerves II-XII are grossly intact. 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 Left upper extremity 5-/5 over the wrist extensors. Sensation is intact bilateral symmetrical. Lower extremities 5/5. Intact sensation, reflexes 2+. Plantars bilaterally downgoing. [id number] is intact. Inpb-wt-iqjf is intact. PSYCHIATRIC: Normal mood and behavior, cooperative. No hallucinations. Objective Radiology Results Last 72 hours Impressions Cervical Spine MRI 06/19/17 0000 Signed Impressions: Service Date/Time: Monday, June 19, 2017 11:34 - CONCLUSION: 1. Multilevel cervical spine degenerative changes as detailed above. 2. High- grade bilateral foraminal stenosis at C5/C6. Also considerable right foraminal stenosis at C6/C7. 3. Mild to moderate spinal stenosis at C5/C6 and mild spinal stenosis at C3/C4, C4/C5 and C6/C7. No cord compression in the imaged position but there is patchy cord edema and/or myelomalacia from C3/C4 through C7/T1. 4. Marrow edema and reactive enhancement of the vertebral body endplates from C3/C4-C6/C7. No fracture or subluxation. 5. Incidentally seen marked tortuosity of the internal carotid arteries. Gelacio Kunz MD Neck CTA 06/18/17 1620 Signed Impressions: Service Date/Time: Sunday, June 18, 2017 17:43 - CONCLUSION: Normal examination. Diogenes Mata MD Head CTA 06/18/17 1620 Signed Impressions: Service Date/Time: Sunday, June 18, 2017 17:43 - CONCLUSION: Normal examination. Diogenes Mata MD Head CT 06/18/17 1532 Signed Impressions: Service Date/Time: Sunday, June 18, 2017 17:39 - CONCLUSION: 1. No evidence of acute intracranial pathology. No masses are identified. Jose Francisco Palencia MD Ossi,Елена Beck MD Jun 20, 2017 10:43
--- NOTE | 2017-06-20 11:59 | PD.CONS ---
[facility] Service Neurosurgery Consult Requested By Dr Hunt [facility] Primary Care Physician Gelacio Deal, History of Present Illness This is a 47-year-old male presents with a day history of bilateral upper extremity weakness. The patient states that he developed sharp pains in his bilateral shoulders which has occurred before. He then states that he noticed that both of his hands and forearms became weak and he was no longer able to lift anything or close his hands. This is a new symptom for him. 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 He reports pain in his shoulders He also reports severe lower back pain associated with bilateral upper extremity weakness, right greater than the left. The patient states that he has had episodes of brief short lasting sudden sharp pain for 2 years duration where he would suddenly feel severe pain between the shoulder blades burning in character that lasts 10-15 seconds, tends to radiate down to the both upper extremities followed by mild weakness and typically, "goes away." He usually try to bend over to relieve the pain in the arms. The patient cannot think of any relation or correlation to a certain movement, exercise, dehydration or any other triggering factor. He has a history of neck trauma in the past. He denies chronic neck pain. He only endorses those brief episodes that are infrequent and he states that he talked about it with the primary care physician but being so infrequent made him just not follow it up. The also states that may be sometimes they are stress-related. During the episode the patient other than the pain the patient feels a racing heart. Denies acid reflux, chest pain or profuse sweating during the episode. What made him come yesterday is the episode was recurrent and it was more intense, however short-lived and this was followed by arm weakness, mainly the right upper extremity with pain in the elbow and right hand. He denies sensory symptoms, sphincter control disturbances and he also endorses pain in both shoulders. MRI cervical spine showed cervical spinal stenosis. Neurosurgical consultation was requested. Review of Systems Constitutional: DENIES: Diaphoretic episodes, Fatigue, Fever, Weight gain, Weight loss, Chills, Dizziness, Change in appetite, Night Sweats Endocrine: DENIES: Heat/cold intolerance, Polydipsia, Polyuria, Polyphagia Eyes: DENIES: Blurred vision, Diplopia, Eye inflammation, Eye pain, Vision loss , Photosensitivity, Double Vision Ears, nose, mouth, throat: DENIES: Tinnitus, Hearing loss, Vertigo, Nasal discharge, Oral lesions, Throat pain, Hoarseness, Ear Pain, Running Nose, Epistaxis, Sinus Pain, Toothache, Odynophagia Respiratory: DENIES: Apneas, Cough, Snoring, Wheezing, Hemoptysis, Sputum production, Shortness of breath Cardiovascular: DENIES: Chest pain, Palpitations, Syncope, Dyspnea on Exertion , PND, Lower Extremity Edema, Orthopnea, Claudication Gastrointestinal: DENIES: Abdominal pain, Black stools, Bloody stools, Constipation, Diarrhea, Nausea, Vomiting, Difficulty Swallowing, Anorexia Genitourinary: DENIES: Sexual dysfunction, Urinary frequency, Urinary incontinence, Urgency, Hematuria, Dysuria, Nocturia, Penile Discharge, Testicular Pain, Testicular Swelling Musculoskeletal: COMPLAINS OF: Back pain, Neck pain, DENIES: Joint pain, Muscle aches, Stiffness, Joint Swelling Integumentary: DENIES: Abnormal pigmentation, Nail changes, Pruritus, Rash Neurologic: COMPLAINS OF: Localized weakness, DENIES: Abnormal gait, Headache, Paresthesias, Seizures, Speech Problems, Tremor, Poor Balance Psychiatric: DENIES: Anxiety, Confusion, Mood changes, Depression, Hallucinations, Agitation, Suicidal Ideation, Homicidal Ideation, Delusions Past Family Social History Allergies: Coded Allergies: azithromycin (Unverified Allergy, Severe, 03/31/17) shellfish derived (Unverified Adverse Reaction, Intermediate, SOB, 03/31/17 ) Past Medical History History of hypertension, now off all medications History of hyperlipidemia, now longer takes a statin Past Surgical History Cardiac catheterization 2 years ago, no stents placed Vasectomy Active Ordered Medications Current Medications Sodium Chloride (NS Flush) 2 ml UNSCH PRN IVF FLUSH AFTER USING IV ACCESS Last administered on 06/18/17 15:38; Start 06/18/17 at 15:45; Stop 06/18/17 at 23:47 ; Status DC Hydromorphone HCl (Dilaudid Pf Inj) 0.75 mg ONCE ONCE IV PUSH Last administered on 06/18/17 16:28; Start 06/18/17 at 16:15; Stop 06/18/17 at 16:17 ; Status DC Iohexol (Omnipaque 350 Inj) 100 ml STK-MED ONCE IVCONTRAST Last administered on 06/18/17 14:53; Start 06/18/17 at 14:53; Stop 06/18/17 at 18:01; Status DC Sodium Chloride (NS Flush) 2 ml UNSCH PRN IV FLUSH FLUSH AFTER USING IV ACCESS ; Start 06/18/17 at 23:45 Sodium Chloride (NS Flush) 2 ml BID IV FLUSH Last administered on 06/20/17 08: 54; Start 06/19/17 at 09:00 Acetaminophen (Tylenol) 650 mg Q4H PRN PO TEMP > 100.4 Last administered on 10:31; Start 06/18/17 at 23:45 Ondansetron HCl (Zofran Inj) 4 mg Q6H PRN IVP NAUSEA OR VOMITING; Start at 23:45 Naloxone HCl (Narcan Inj) 0.4 mg UNSCH PRN IV PUSH SEE LABEL COMMENTS; Start 06/18/17 at 23:45 Clonidine (Catapres) 0.2 mg Q6H PRN PO SBP>160, DBP>90; Start 06/19/17 at 01:15 Nebivolol (Bystolic) 5 mg DAILY PO Last administered on 06/20/17 08:54; Start 06/19/17 at 09:00 Pravastatin Sodium (Pravachol) 20 mg HS PO Last administered on 06/19/17 20:45 ; Start 06/19/17 at 21:00 Gadodiamide (Omniscan Pf Inj) 13 ml STK-MED ONCE IVCONTRAST Last administered on 06/18/17 23:19; Start 06/18/17 at 23:19; Stop 06/19/17 at 12:00; Status DC Family History Mother is prediabetic. Father with previous [place], hypertension Social History Former smoker. Quit smoking in 2010 (15 pack year history). Occasional alcohol use. Prescription marijuana. Denies other illicit drugs Physical Exam Vital Signs The patient is alert, awake and oriented to time, place and person. Speech is fluent. Higher cognitive functions are normal. Cranial nerve examination demonstrates the pupils to be equal, round, and reactive to light. Extra-ocular movements are intact. Facial motor and sensory function are normal and symmetrical. Gross hearing is intact, bilaterally. The uvula is midline and elevates symmetrically with the soft palate. Sternocleidomastoid and trapezius muscles have normal and symmetrical strength. Other cranial nerves are intact. Neck is soft and supple. Cervical spine has a decreased range of motion in anterior flexion, extension, lateral bending, and rotation without pain. There is no tenderness to palpation to the spinous processes or paraspinal muscles. Muscle testing reveals normal bulk and tone overall without rigidity, spasticity , fasciculations, or atrophy. Muscle strength is 4/5 in all muscle groups of both upper extremities including deltoid, biceps, triceps, brachioradialis, wrist extension and meat scrubber. In the lower extremities, strength is 5/5 in both iliopsoas, quadriceps, hamstrings, plantar flexion, dorsiflexion, and extensor hallicus longus. Sensory examination is intact to light touch and sharp/dull discrimination in both the upper and lower extremities, symmetrically. Deep tendon reflexes are 2+ and symmetrical in the biceps, triceps, and brachioradialis, bilaterally, in the upper extremities. In the lower extremities , the patellar and Achilles are 2+, bilaterally. There is a bilateral plantar flexion response. Hoffmanns sign is negative. There is no clonus or other abnormal reflexes noted. Cerebellar examination is intact to [id number] test, rapid rhythmic alternating motion. There is no dysmetria, dysdiadochokinesia, truncal ataxia, or tremor. Result Diagram: 06/19/17 0802 06/19/17 08 Imaging Last 48 hours Impressions Cervical Spine MRI 06/19/17 0000 Signed Impressions: Service Date/Time: Monday, June 19, 2017 11:34 - CONCLUSION: 1. Multilevel cervical spine degenerative changes as detailed above. 2. High- grade bilateral foraminal stenosis at C5/C6. Also considerable right foraminal stenosis at C6/C7. 3. Mild to moderate spinal stenosis at C5/C6 and mild spinal stenosis at C3/C4, C4/C5 and C6/C7. No cord compression in the imaged position but there is patchy cord edema and/or myelomalacia from C3/C4 through C7/T1. 4. Marrow edema and reactive enhancement of the vertebral body endplates from C3/C4-C6/C7. No fracture or subluxation. 5. Incidentally seen marked tortuosity of the internal carotid arteries. Gelacio Kunz MD Neck CTA 06/18/17 1620 Signed Impressions: Service Date/Time: Sunday, June 18, 2017 17:43 - CONCLUSION: Normal examination. Diogenes Mata MD Head CTA 06/18/17 1620 Signed Impressions: Service Date/Time: Sunday, June 18, 2017 17:43 - CONCLUSION: Normal examination. Diogenes Mata MD Head CT 06/18/17 1532 Signed Impressions: Service Date/Time: Sunday, June 18, 2017 17:39 - CONCLUSION: 1. No evidence of acute intracranial pathology. No masses are identified. Jose Francisco Palencia MD Assessment and Plan Assessment and Plan Caprini VTE Risk Assessment Caprini VTE Risk Assessment: No/Low Risk (score <= 1) Caprini Risk Assessment Model Point Value = 1 Point Value = 2 Point Value = 3 Point Value = 5 Age 41-60 Minor surgery BMI > 25 kg/m2 Swollen legs Varicose veins or History of unexplained or recurrent spontaneous Oral contraceptives or hormone replacement Sepsis (< 1 month) Serious lung disease, including pneumonia (< 1 month) Abnormal pulmonary function Acute myocardial infarction Congestive heart failure (< 1 month) History of inflammatory bowel disease Medical patient at bed rest Age 61-74 Arthroscopic surgery Major open surgery (> 45 min) Laparoscopic surgery (> 45 min) Malignancy Confined to bed (> 72 hours) Immobilizing plaster cast Central venous access Age >= 75 History of VTE Family history of VTE Factor V Leiden Prothrombin [id number] Lupus anticoagulant Anticardiolipin antibodies Elevated serum homocysteine Heparin-induced thrombocytopenia Other congenital or acquired thrombophilia Stroke (< 1 month) Elective arthroplasty Hip, pelvis, or leg fracture Acute spinal cord injury (< 1 month) Prophylaxis Regimen Total Risk Factor Score Risk Level Prophylaxis Regimen 0-1 Low Early ambulation 2 Moderate Order ONE of the following: *Sequential Compression Device (SCD) *Heparin 5000 units SQ BID 3-4 Higher Order ONE of the following medications: *Heparin 5000 units SQ TID *Enoxaparin/Lovenox 40 mg SQ daily (WT < 150 kg, CrCl > 30 mL/min) *Enoxaparin/Lovenox 30 mg SQ daily (WT < 150 kg, CrCl > 10-29 mL/min) *Enoxaparin/Lovenox 30 mg SQ BID (WT < 150 kg, CrCl > 30 mL/min) AND/OR *Sequential Compression Device (SCD) 5 or more Highest Order ONE of the following medications: *Heparin 5000 units SQ TID (Preferred with Epidurals) *Enoxaparin/Lovenox 40 mg SQ daily (WT < 150 kg, CrCl > 30 mL/min) *Enoxaparin/Lovenox 30 mg SQ daily (WT < 150 kg, CrCl > 10-29 mL/min) *Enoxaparin/Lovenox 30 mg SQ BID (WT < 150 kg, CrCl > 30 mL/min) AND *Sequential Compression Device (SCD) Attending Statement I reviewed his clinical and radiological fndings. I discussed with him the alternatives of treatment. Continue Pulmonary.aggressive pulmonary toilette, nasotracheal suction, and breathing treatments with nebulizers. PT evaluation Nutrition. Continue Oral diet Renal. monitor closely urine output, BUN and creatinine Endocrine. Monitor serial Acu checks and SSI as needed in detail ID monitor for signs of infection Continue Protonix for stress ulcer prophylaxis Continue Danny sofía and SCD's for DVT prophylaxis. Se De Luna MD Jun 20, 2017 11:59
[2017-06-20] MEDS: PRAVASTATIN SOD 20 MG TAB PO SCH (21:11)
[2017-06-21 00:13] VITALS: BP 129/78; PULSE 52; RESP 18; TEMP 98.4; O2SAT 93
[2017-06-21 03:09] VITALS: BP 134/79; PULSE 62; RESP 18; TEMP 98; O2SAT 95
[2017-06-21 07:22] VITALS: BP 153/106; PULSE 59; RESP 22; TEMP 98.6; O2SAT 95
[2017-06-21] MEDS: NEBIVOLOL 5 MG TAB PO SCH (08:50)
[2017-06-21] MEDS: ACETAMINOPHEN/HYDROcodone 325 MG/5 MG TAB PO PRN ×2 (08:51→16:45)
[2017-06-21] MEDS: SODIUM CHLORIDE 0.9% FLUSH 10 ML FLUSH IV FLUSH SCH ×2 (09:00→20:23)
--- NOTE | 2017-06-21 10:12 | HHI.PR ---
Subjective Remarks Follow up for BUE weakness/paresthesias, hypertension. 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 He reports a few episodes of sharp posterior neck pain overnight, now resolved after receiving [place]. Continues to deny any numbness/weakness of b/l lower extremities. He has no other medical complaints at this time. Objective Vitals Vital Signs Date Time Temp Pulse Resp B/P (MAP) Pulse Ox O2 Delivery O2 Flow Rate FiO2 06/21/17 07:22 98.6 59 22 153/106 (122) 95 06/21/17 03:09 98.0 62 18 134/79 (97) 95 06/21/17 00:13 98.4 52 18 129/78 (95) 93 06/20/17 19:56 98.4 62 18 135/86 (102) 96 06/20/17 15:56 97.9 60 18 136/90 (105) 96 06/20/17 15:00 69 06/20/17 12:12 97.5 57 18 129/94 (106) 95 I/O 06/20/17 06/20/17 06/20/17 06/21/17 06/21/17 06/21/17 07:00 15:00 23:00 07:00 15:00 23:00 Intake Total 1170 ml Output Total 200 ml 300 ml Balance -200 ml 870 ml Intake Oral 1170 ml Output Urine Total 200 ml 300 ml # Voids 1 5 # Bowel Movements 0 0 Result Diagram: 06/19/17 0802 06/19/17 0802 Imaging Last Impressions Cervical Spine MRI 06/19/17 0000 Signed Impressions: Service Date/Time: Monday, June 19, 2017 11:34 - CONCLUSION: 1. Multilevel cervical spine degenerative changes as detailed above. 2. High- grade bilateral foraminal stenosis at C5/C6. Also considerable right foraminal stenosis at C6/C7. 3. Mild to moderate spinal stenosis at C5/C6 and mild spinal stenosis at C3/C4, C4/C5 and C6/C7. No cord compression in the imaged position but there is patchy cord edema and/or myelomalacia from C3/C4 through C7/T1. 4. Marrow edema and reactive enhancement of the vertebral body endplates from C3/C4-C6/C7. No fracture or subluxation. 5. Incidentally seen marked tortuosity of the internal carotid arteries. Gelacio Kunz MD Neck CTA 06/18/17 1620 Signed Impressions: Service Date/Time: Sunday, June 18, 2017 17:43 - CONCLUSION: Normal examination. Diogenes Mata MD Head CTA 06/18/17 1620 Signed Impressions: Service Date/Time: Sunday, June 18, 2017 17:43 - CONCLUSION: Normal examination. Diogenes Mata MD Head CT 06/18/17 1532 Signed Impressions: Service Date/Time: Sunday, June 18, 2017 17:39 - CONCLUSION: 1. No evidence of acute intracranial pathology. No masses are identified. Jose Francisco Palencia MD Objective Remarks GENERAL: Well-nourished, well-developed middle aged male patient in [facility]. SKIN: Warm and dry. No rash. HEENT: Normocephalic. Atraumatic.Pupils equal and round. Mucous membranes pink and moist. NECK: Supple. Trachea midline. Nontender. CARDIOVASCULAR: Regular rate and rhythm. S1, S2 noted. No murmur appreciated. RESPIRATORY: No accessory muscle use. Clear to auscultation. Breath sounds equal bilaterally. GASTROINTESTINAL: Abdomen soft, non-tender, nondistended. Normoactive bowel sounds x4. MUSCULOSKELETAL: No obvious deformities. Extremities without clubbing, cyanosis , or edema. NEUROLOGICAL: Awake and alert. No obvious cranial nerve deficits. 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 5/5 muscle strength in bilateral lower extremities. Bilateral upper and lower extremity sensation equal and intact. Normal speech. No pronator drift. No facial droop, lid lag, tongue deviation. PSYCHIATRIC: Appropriate mood and affect; insight and judgment normal. Medications and IVs Current Medications Medications (Trade) Dose Ordered Sig/Ryan Route Start Time Stop Time Status Last Admin (NS Flush) 2 ml UNSCH PRN IV FLUSH 06/18/17 23:45 (NS Flush) 2 ml BID IV FLUSH 06/19/17 09:00 06/21/17 09:00 (Tylenol) 650 mg Q4H PRN PO 06/18/17 23:45 06/20/17 10:31 (Zofran Inj) 4 mg Q6H PRN IVP 06/18/17 23:45 (Narcan Inj) 0.4 mg UNSCH PRN IV PUSH 06/18/17 23:45 (Catapres) 0.2 mg Q6H PRN PO 06/19/17 01:15 (Bystolic) 5 mg DAILY PO 06/19/17 09:00 06/21/17 08:50 (Pravachol) 20 mg HS PO 06/19/17 21:00 06/20/17 21:11 ([place] 5-325 Mg) 1 tab Q6H PRN PO 06/21/17 08:45 06/21/17 08:51 A/P Problem List: (1) Bilateral arm weakness ICD Code: R29.898 - Other symptoms and signs involving the musculoskeletal system Status: Acute Assessment and Plan 47-year-old male with no significant past medical history presents with a 1 day history of bilateral upper extremity weakness and numbness Cervical Myelopathy with Bilateral Upper Extremity Weakness/Numbness: rule out CVA vs cervical spine etiology. Head CT and Head/Neck CTA images reviewed, no acute findings. C-spine MRI images reviewed, shows high-grade bilateral foraminal stenosis at C5/C6; considerable right foraminal stenosis at C6/C7; Mild to moderate spinal stenosis at C5/C6 and mild spinal stenosis at C3/C4, C4/ C5 and C6/C7; No cord compression in the imaged position but there is patchy cord edema and/or myelomalacia from C3/C4 through C7/T1; Marrow edema and reactive enhancement of the vertebral body endplates from C3/C4-C6/C7; No fracture or subluxation. -Consult neurology, appreciate recommendations from Dr. Rodríguez -Continue neuro checks -Consult PT/OT, recommends [facility] -Consult neurosurgery, recommends surgical decompression, plan to go to OR tomorrow 06/22, NPO after midnight Accelerated Hypertension: BP 190/109 in the ED. Patient denies history of hypertension at home although BP has been elevated here, possibly stress/ hospital induced. -patient started on Bystolic 5mg qd -continue to monitor BP, adjust antihypertensive as needed -continue clonidine prn -needs outpatient f/up with PCP Hyperlipidemia: lipid panel revealed elevated cholesterol 212 and LDL 141 -started on pravastatin 20mg hs -needs outpatient f/up with PCP DVT Prophylaxis: teds/SCDs Discharge Planning Plan to go to OR tomorrow. Vicky Jasso PA-C Jun 21, 2017 10:12
[2017-06-21 11:35] VITALS: BP 148/87; PULSE 50; RESP 20; TEMP 97.9; O2SAT 97
--- NOTE | 2017-06-21 12:09 | HHI.NSPN ---
Note Status Status: Progress Note Interval History Diagnosis Cervical stenosis with spinal cord compression Interval History This is a 47-year-old male presents with a day history of bilateral upper extremity weakness. The patient states that he developed sharp pains in his bilateral shoulders which has occurred before. He then states that he noticed that both of his hands and forearms became weak and he was no longer able to lift anything or close his hands. This is a new symptom for him. 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 He reports pain in his shoulders He also reports severe lower back pain associated with bilateral upper extremity weakness, right greater than the left. The patient states that he has had episodes of brief short lasting sudden sharp pain for 2 years duration where he would suddenly feel severe pain between the shoulder blades burning in character that lasts 10-15 seconds, tends to radiate down to the both upper extremities followed by mild weakness and typically, "goes away." He usually try to bend over to relieve the pain in the arms. The patient cannot think of any relation or correlation to a certain movement, exercise, dehydration or any other triggering factor. He has a history of neck trauma in the past. He denies chronic neck pain. He only endorses those brief episodes that are infrequent and he states that he talked about it with the primary care physician but being so infrequent made him just not follow it up. The also states that may be sometimes they are stress-related. During the episode the patient other than the pain the patient feels a racing heart. Denies acid reflux, chest pain or profuse sweating during the episode. What made him come yesterday is the episode was recurrent and it was more intense, however short-lived and this was followed by arm weakness, mainly the right upper extremity with pain in the elbow and right hand. He denies sensory symptoms, sphincter control disturbances and he also endorses pain in both shoulders. MRI cervical spine showed cervical spinal stenosis. Neurosurgical consultation was requested. Labs, Micro, & Vital Signs Results Date Time Temp Pulse Resp B/P (MAP) Pulse Ox O2 Delivery O2 Flow Rate FiO2 06/21/17 11:35 97.9 50 20 148/87 (107) 97 06/21/17 07:22 98.6 59 22 153/106 (122) 95 06/21/17 03:09 98.0 62 18 134/79 (97) 95 06/21/17 00:13 98.4 52 18 129/78 (95) 93 06/20/17 19:56 98.4 62 18 135/86 (102) 96 06/20/17 15:56 97.9 60 18 136/90 (105) 96 06/20/17 15:00 69 06/20/17 12:12 97.5 57 18 129/94 (106) 95 Constitutional Vital Signs Date Time Temp Pulse Resp B/P (MAP) Pulse Ox O2 Delivery O2 Flow Rate FiO2 06/21/17 11:35 97.9 50 20 148/87 (107) 97 06/21/17 07:22 98.6 59 22 153/106 (122) 95 06/21/17 03:09 98.0 62 18 134/79 (97) 95 06/21/17 00:13 98.4 52 18 129/78 (95) 93 06/20/17 19:56 98.4 62 18 135/86 (102) 96 06/20/17 15:56 97.9 60 18 136/90 (105) 96 06/20/17 15:00 69 06/20/17 12:12 97.5 57 18 129/94 (106) 95 Review of Systems Constitutional: DENIES: Diaphoretic episodes, Fatigue, Fever, Weight gain, Weight loss, Chills, Dizziness, Change in appetite, Night Sweats Endocrine: DENIES: Heat/cold intolerance, Polydipsia, Polyuria, Polyphagia Eyes: DENIES: Blurred vision, Diplopia, Eye inflammation, Eye pain, Vision loss , Photosensitivity, Double Vision Ears, nose, mouth, throat: DENIES: Tinnitus, Hearing loss, Vertigo, Nasal discharge, Oral lesions, Throat pain, Hoarseness, Ear Pain, Running Nose, Epistaxis, Sinus Pain, Toothache, Odynophagia Respiratory: DENIES: Apneas, Cough, Snoring, Wheezing, Hemoptysis, Sputum production, Shortness of breath Cardiovascular: DENIES: Chest pain, Palpitations, Syncope, Dyspnea on Exertion , PND, Lower Extremity Edema, Orthopnea, Claudication Gastrointestinal: DENIES: Abdominal pain, Black stools, Bloody stools, Constipation, Diarrhea, Nausea, Vomiting, Difficulty Swallowing, Anorexia Genitourinary: DENIES: Sexual dysfunction, Urinary frequency, Urinary incontinence, Urgency, Hematuria, Dysuria, Nocturia, Penile Discharge, Testicular Pain, Testicular Swelling Musculoskeletal: COMPLAINS OF: Back pain, Neck pain, DENIES: Joint pain, Muscle aches, Stiffness, Joint Swelling Integumentary: DENIES: Abnormal pigmentation, Nail changes, Pruritus, Rash Neurologic: COMPLAINS OF: Localized weakness, DENIES: Abnormal gait, Headache, Paresthesias, Seizures, Speech Problems, Tremor, Poor Balance Psychiatric: DENIES: Anxiety, Confusion, Mood changes, Depression, Hallucinations, Agitation, Suicidal Ideation, Homicidal Ideation, Delusions Physical Exam Mr Kuhn is alert, awake and oriented to time, place and person. Speech is fluent. Higher cognitive functions are normal. Cranial nerve examination demonstrates the pupils to be equal, round, and reactive to light. Extra-ocular movements are intact. Facial motor and sensory function are normal and symmetrical. Gross hearing is intact, bilaterally. The uvula is midline and elevates symmetrically with the soft palate. Sternocleidomastoid and trapezius muscles have normal and symmetrical strength. Other cranial nerves are intact. Neck is soft and supple. Cervical spine has a decreased range of motion in anterior flexion, extension, lateral bending, and rotation without pain. There is no tenderness to palpation to the spinous processes or paraspinal muscles. Muscle testing reveals normal bulk and tone overall without rigidity, spasticity , fasciculations, or atrophy. 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 In the lower extremities, strength is 5/5 in both iliopsoas, quadriceps, hamstrings, plantar flexion, dorsiflexion, and extensor hallicus longus. Sensory examination is intact to light touch and sharp/dull discrimination in both the upper and lower extremities, symmetrically. Deep tendon reflexes are 2+ and symmetrical in the biceps, triceps, and brachioradialis, bilaterally, in the upper extremities. In the lower extremities , the patellar and Achilles are 2+, bilaterally. There is a bilateral plantar flexion response. Hoffmanns sign is negative. There is no clonus or other abnormal reflexes noted. Cerebellar examination is intact to [id number] test, rapid rhythmic alternating motion. Medications Current Medications Current Medications Sodium Chloride (NS Flush) 2 ml UNSCH PRN IVF FLUSH AFTER USING IV ACCESS Last administered on 06/18/17 15:38; Start 06/18/17 at 15:45; Stop 06/18/17 at 23:47 ; Status DC Hydromorphone HCl (Dilaudid Pf Inj) 0.75 mg ONCE ONCE IV PUSH Last administered on 06/18/17 16:28; Start 06/18/17 at 16:15; Stop 06/18/17 at 16:17 ; Status DC Iohexol (Omnipaque 350 Inj) 100 ml STK-MED ONCE IVCONTRAST Last administered on 06/18/17 14:53; Start 06/18/17 at 14:53; Stop 06/18/17 at 18:01; Status DC Sodium Chloride (NS Flush) 2 ml UNSCH PRN IV FLUSH FLUSH AFTER USING IV ACCESS ; Start 06/18/17 at 23:45 Sodium Chloride (NS Flush) 2 ml BID IV FLUSH Last administered on 06/21/17 09: 00; Start 06/19/17 at 09:00 Acetaminophen (Tylenol) 650 mg Q4H PRN PO headache/fever/pain1-5 Last administered on 06/20/17 10:31; Start 06/18/17 at 23:45 Ondansetron HCl (Zofran Inj) 4 mg Q6H PRN IVP NAUSEA OR VOMITING; Start at 23:45 Naloxone HCl (Narcan Inj) 0.4 mg UNSCH PRN IV PUSH SEE LABEL COMMENTS; Start 06/18/17 at 23:45 Clonidine (Catapres) 0.2 mg Q6H PRN PO SBP>160, DBP>90; Start 06/19/17 at 01:15 Nebivolol (Bystolic) 5 mg DAILY PO Last administered on 06/21/17 08:50; Start 06/19/17 at 09:00 Pravastatin Sodium (Pravachol) 20 mg HS PO Last administered on 06/20/17 21:11 ; Start 06/19/17 at 21:00 Gadodiamide (Omniscan Pf Inj) 13 ml STK-MED ONCE IVCONTRAST Last administered on 06/18/17t 23:19; Start 06/18/17 at 23:19; Stop 06/19/17 at 12:00; Status DC Acetaminophen/ Hydrocodone Bitart ([place] 5-325 Mg) 1 tab Q6H PRN PO pain 6-10 Last administered on 06/21/17t 08:51; Start 06/21/17 at 08:45 Medical Decision Making MDM Remarks I again reviewed Cervical Spine MRI 06/19/17 0000 Signed Impressions: Service Date/Time: Monday, June 19, 2017 11:34 - CONCLUSION: 1. Multilevel cervical spine degenerative changes as detailed above. 2. High- grade bilateral foraminal stenosis at C5/C6. Also considerable right foraminal stenosis at C6/C7. 3. Mild to moderate spinal stenosis at C5/C6 and mild spinal stenosis at C3/C4, C4/C5 and C6/C7. No cord compression in the imaged position but there is patchy cord edema and/or myelomalacia from C3/C4 through C7/T1. 4. Marrow edema and reactive enhancement of the vertebral body endplates from C3/C4-C6/C7. No fracture or subluxation. 5. Incidentally seen marked tortuosity of the internal carotid arteries. Gelacio Kunz MD Neck CTA 06/18/17 1620 Signed Impressions: Service Date/Time: Sunday, June 18, 2017 17:43 - CONCLUSION: Normal examination. Diogenes Mata MD Head CTA 06/18/17 1620 Signed Impressions: Service Date/Time: Sunday, June 18, 2017 17:43 - CONCLUSION: Normal examination. Diogenes Mata MD Head CT 06/18/17 1532 Signed Impressions: Service Date/Time: Sunday, June 18, 2017 17:39 - CONCLUSION: 1. No evidence of acute intracranial pathology. No masses are identified. Jose Francisco Palencia MD Plan Plan Remarks Caprini VTE Risk Assessment Caprini VTE Risk Assessment: No/Low Risk (score <= 1) Caprini Risk Assessment Model Point Value = 1 Point Value = 2 Point Value = 3 Point Value = 5 Age 41-60 Minor surgery BMI > 25 kg/m2 Swollen legs Varicose veins or History of unexplained or recurrent spontaneous Oral contraceptives or hormone replacement Sepsis (< 1 month) Serious lung disease, including pneumonia (< 1 month) Abnormal pulmonary function Acute myocardial infarction Congestive heart failure (< 1 month) History of inflammatory bowel disease Medical patient at bed rest Age 61-74 Arthroscopic surgery Major open surgery (> 45 min) Laparoscopic surgery (> 45 min) Malignancy Confined to bed (> 72 hours) Immobilizing plaster cast Central venous access Age >= 75 History of VTE Family history of VTE Factor V Leiden Prothrombin [id number] Lupus anticoagulant Anticardiolipin antibodies Elevated serum homocysteine Heparin-induced thrombocytopenia Other congenital or acquired thrombophilia Stroke (< 1 month) Elective arthroplasty Hip, pelvis, or leg fracture Acute spinal cord injury (< 1 month) Prophylaxis Regimen Total Risk Factor Score Risk Level Prophylaxis Regimen 0-1 Low Early ambulation 2 Moderate Order ONE of the following: *Sequential Compression Device (SCD) *Heparin 5000 units SQ BID 3-4 Higher Order ONE of the following medications: *Heparin 5000 units SQ TID *Enoxaparin/Lovenox 40 mg SQ daily (WT < 150 kg, CrCl > 30 mL/min) *Enoxaparin/Lovenox 30 mg SQ daily (WT < 150 kg, CrCl > 10-29 mL/min) *Enoxaparin/Lovenox 30 mg SQ BID (WT < 150 kg, CrCl > 30 mL/min) AND/OR *Sequential Compression Device (SCD) 5 or more Highest Order ONE of the following medications: *Heparin 5000 units SQ TID (Preferred with Epidurals) *Enoxaparin/Lovenox 40 mg SQ daily (WT < 150 kg, CrCl > 30 mL/min) *Enoxaparin/Lovenox 30 mg SQ daily (WT < 150 kg, CrCl > 10-29 mL/min) *Enoxaparin/Lovenox 30 mg SQ BID (WT < 150 kg, CrCl > 30 mL/min) AND *Sequential Compression Device (SCD) Attending Statement I again discussed with him the alternatives of treatment. He remains very weak particularly in his upper extremities. He may benefit by a surgical decompression. He has multilevel spinal; stenosis, worse at C5-6. Recommend consideration to a C5-6 anterior cervical discectomy and arthrodhesis with PEEK cage, plate and screws. We have discussed the details including the step-by- step details of the surgical procedure, its indications, alternatives, risks, and potential complications. Risks and potential complications include, but are not limited to, infection, blood loss, CSF leak, partial or complete loss of sight in one or both eyes, paresis, paralysis, permanent pain or difficulty swallowing, loss of bowel or bladder function, complications from anesthesia, blood clot, stroke, myocardial infarction, or even . Continue Pulmonary.aggressive pulmonary toilette, nasotracheal suction, and breathing treatments with nebulizers. PT evaluation Nutrition. Continue Oral diet Renal. monitor closely urine output, BUN and creatinine Endocrine. Monitor serial Acu checks and SSI as needed in detail ID monitor for signs of infection Continue Protonix for stress ulcer prophylaxis Continue Danny hose and SCD's for DVT prophylaxis. Se De Luna MD Jun 21, 2017 12:08
--- NOTE | 2017-06-21 15:30 | RADRPT ---
EXAM DATE/TIME: 06/21/2017 14:52 [facility] COMPARISON: No previous studies available for comparison. INDICATIONS : Evaluate for pneumonia, pneumothorax, or any communicable disease. Pre op neck surgery. MEDICAL HISTORY : Hypertension. Cardiovascular disease. SURGICAL HISTORY : None. ENCOUNTER: Initial ACUITY: 1 day PAIN SCORE: 0/10 LOCATION: Bilateral chest FINDINGS: PA and lateral views of the chest demonstrate the lungs to be symmetrically aerated without evidence of mass, infiltrate or effusion. The cardiomediastinal contours are unremarkable. Osseous structure s are intact. CONCLUSION: No acute disease. Nito Khan MD FACR on June 21, 2017 at 15:28 Board Certified Radiologist. This report was verified electronically.
[2017-06-21 15:41] VITALS: BP 119/72; PULSE 61; RESP 20; TEMP 98; O2SAT 96
[2017-06-21 18:05] LABS: APTT (PATIENT) 26.7 SEC (24.3-30.1); PROTHROMBIN TIME - PATIENT 10.5 SEC (9.8-11.6)
[2017-06-21 19:57] VITALS: BP 119/76; PULSE 70; RESP 18; TEMP 97.7; O2SAT 96
[2017-06-21] MEDS: PRAVASTATIN SOD 20 MG TAB PO SCH (20:23)
[2017-06-21] MEDS: CHLORHEXIDINE GLUCONATE 4% SOLN 120 ML BTL TOP SCH (21:00)
[2017-06-22 02:41] VITALS: BP 151/98; PULSE 52; RESP 18; TEMP 98.1; O2SAT 96
[2017-06-22] MEDS ORDERED: VANCOMYCIN INJ 1,000 MG in SODIUM CHLOR 0.9% 250 ML INJ 250 ML IV ONE (06:00)
[2017-06-22] MEDS ORDERED: ceFAZolin 2 GM PREMIX 0 ML ONE (07:15)
[2017-06-22] MEDS ORDERED: MICROFIBRILLAR COLLAGEN HEMOSTAT 70 X 35 MM BANDAGE ONE (07:15)
[2017-06-22] MEDS ORDERED: GELFOAM SIZE 100 ONE (07:15)
[2017-06-22] MEDS ORDERED: GENTAMICIN SULFATE 80 MG/2 ML VIAL ONE (07:15)
[2017-06-22] MEDS ORDERED: THROMBIN (TOPICAL) 5,000 UNIT VIAL ONE (07:15)
[2017-06-22 07:27] VITALS: BP 147/90; PULSE 52; RESP 18; TEMP 97.5; O2SAT 98
[2017-06-22] MEDS: NEBIVOLOL 5 MG TAB PO SCH (08:45)
[2017-06-22] MEDS: SODIUM CHLORIDE 0.9% FLUSH 10 ML FLUSH IV FLUSH SCH ×2 (08:47→22:17)
--- NOTE | 2017-06-22 09:56 | RADRPT ---
EXAM DATE/TIME: 06/22/2017 09:01 [facility] COMPARISON: No previous studies available for comparison. INDICATIONS : Right arm edema. MEDICAL HISTORY : Hypercholesterolemia. Hypertension. Weakness. Neck pain. SURGICAL HISTORY : Cardiac cath. Vasectomy. ENCOUNTER: Initial ACUITY: 1 day PAIN SCORE: 2/10 LOCATION: Right arm. FINDINGS: There is spontaneous flow documented in the brachial, basilic, cephalic, axillary, and subclavian vei ns. The vessels are compressible and augmentation response is documented. No filling defects are se en. The flow is phasic with respiration. Direction of flow in the jugular vein is caudal. CONCLUSION: 1. No sonographic evidence for right upper extremity DVT. Tacos Enciso MD on June 22, 2017 at 9:52 Board Certified Radiologist. This report was verified electronically.
--- NOTE | 2017-06-22 10:02 | HHI.PR ---
Subjective Remarks Follow up on patient with BUE weakness/paresthesias, HTN. Patient seen and examined. Patient complains of persistent swelling in RUE and sensation of "boiling water being poured over it". Patient states this began just prior to him coming into the ED. Denies any IV site on the RUE. Patient reports weakness is about the same. He denies any new complaints. Denies any fever, chills, dizziness, headache, nausea, vomiting, chest pain, shortness of breath, abdominal pain, urinary complaints, diarrhea or constipation. Objective Vitals Vital Signs Date Time Temp Pulse Resp B/P (MAP) Pulse Ox O2 Delivery O2 Flow Rate FiO2 06/22/17 07:27 97.5 52 18 147/90 (109) 98 06/22/17 02:41 98.1 52 18 151/98 (115) 96 06/21/17 19:57 97.7 70 18 119/76 (90) 96 06/21/17 15:41 98.0 61 20 119/72 (88) 96 06/21/17 11:35 97.9 50 20 148/87 (107) 97 I/O 06/21/17 06/21/17 06/21/17 06/22/17 06/22/17 06/22/17 07:00 15:00 23:00 07:00 15:00 23:00 Intake Total 200 ml Balance 200 ml Intake Oral 200 ml Result Diagram: 06/19/1780106/19/1702 Imaging Last Impressions Chest X-Ray 06/21/17 0000 Signed Impressions: Service Date/Time: Wednesday, June 21, 2017 14:52 - CONCLUSION: No acute disease. Nito Khan MD FACR Cervical Spine MRI 06/19/17 0000 Signed Impressions: Service Date/Time: Monday, June 19, 2017 11:34 - CONCLUSION: 1. Multilevel cervical spine degenerative changes as detailed above. 2. High- grade bilateral foraminal stenosis at C5/C6. Also considerable right foraminal stenosis at C6/C7. 3. Mild to moderate spinal stenosis at C5/C6 and mild spinal stenosis at C3/C4, C4/C5 and C6/C7. No cord compression in the imaged position but there is patchy cord edema and/or myelomalacia from C3/C4 through C7/T1. 4. Marrow edema and reactive enhancement of the vertebral body endplates from C3/C4-C6/C7. No fracture or subluxation. 5. Incidentally seen marked tortuosity of the internal carotid arteries. Gelacio Kunz MD Neck CTA 06/18/17 1620 Signed Impressions: Service Date/Time: Sunday, June 18, 2017 17:43 - CONCLUSION: Normal examination. Diogenes Mata MD Head CTA 06/18/17 1620 Signed Impressions: Service Date/Time: Sunday, June 18, 2017 17:43 - CONCLUSION: Normal examination. Diogenes Mata MD Head CT 06/18/17 1532 Signed Impressions: Service Date/Time: Sunday, June 18, 2017 17:39 - CONCLUSION: 1. No evidence of acute intracranial pathology. No masses are identified. Jose Francisco Palencia MD Objective Remarks GENERAL: Well-nourished, well-developed middle aged male patient in [facility]. Awake and alert. is at the bedside. SKIN: Warm and dry. No rash. HEENT: Normocephalic. Atraumatic. EOMI. Mucous membranes pink and moist. NECK: Supple. Trachea midline. Nontender. CARDIOVASCULAR: Regular rate and rhythm. S1, S2 noted. No murmur appreciated. RESPIRATORY: Nonlabored. Clear to auscultation. Breath sounds equal bilaterally. GASTROINTESTINAL: Abdomen soft, non-tender, nondistended. Normoactive bowel sounds x4. MUSCULOSKELETAL: No obvious deformities. Extremities without clubbing or cyanosis. (+)mild nonpitting edema noted in the right hand. NEUROLOGICAL: Awake and alert. No obvious cranial nerve deficits. 4/5 strength of bilateral upper extremities, worse with 4-/5 storage solutions architect strength of the right hand. 5/5 muscle strength in bilateral lower extremities. Bilateral upper and lower extremity sensation equal and intact. Normal speech. No pronator drift. No facial droop, lid lag, tongue deviation. PSYCHIATRIC: Appropriate mood and affect; insight and judgment normal. Medications and IVs Current Medications Medications (Trade) Dose Ordered Sig/Ryan Route Start Time Stop Time Status Last Admin (NS Flush) 2 ml UNSCH PRN IV FLUSH 06/18/17 23:45 (NS Flush) 2 ml BID IV FLUSH 06/19/17 09:00 06/22/17 08:47 (Tylenol) 650 mg Q4H PRN PO 06/18/17 23:45 06/20/17 10:31 (Zofran Inj) 4 mg Q6H PRN IVP 06/18/17 23:45 (Narcan Inj) 0.4 mg UNSCH PRN IV PUSH 06/18/17 23:45 (Catapres) 0.2 mg Q6H PRN PO 06/19/17 01:15 (Bystolic) 5 mg DAILY PO 06/19/17 09:00 06/22/17 08:45 (Pravachol) 20 mg HS PO 06/19/17 21:00 06/21/17 20:23 ([place] 5-325 Mg) 1 tab Q6H PRN PO 06/21/17 08:45 06/21/17 16:45 (Hibiclens 4% Top Soln) 1 applic HS TOP 06/21/17 21:00 06/23/17 21:01 06/21/17 21:00 A/P Problem List: (1) Bilateral arm weakness ICD Code: R29.898 - Other symptoms and signs involving the musculoskeletal system Status: Acute Assessment and Plan 47-year-old male with no significant past medical history presents with a 1 day history of bilateral upper extremity weakness and numbness Cervical Myelopathy with Bilateral Upper Extremity Weakness/Numbness: rule out CVA vs cervical spine etiology. Head CT and Head/Neck CTA images reviewed, no acute findings. C-spine MRI images reviewed, shows high-grade bilateral foraminal stenosis at C5/C6; considerable right foraminal stenosis at C6/C7; Mild to moderate spinal stenosis at C5/C6 and mild spinal stenosis at C3/C4, C4/ C5 and C6/C7; No cord compression in the imaged position but there is patchy cord edema and/or myelomalacia from C3/C4 through C7/T1; Marrow edema and reactive enhancement of the vertebral body endplates from C3/C4-C6/C7; No fracture or subluxation. -Consult neurology, appreciate recommendations from Dr. Rodríguez -Continue neuro checks -Consult PT/OT, recommends [facility] -Consult neurosurgery, recommends surgical decompression, plan to go to OR tomorrow today RUE edema -mild -suspect due to cervical nerve impingement -obtain RUE duplex US to r/o DVT Accelerated Hypertension: BP 190/109 in the ED. Patient denies history of hypertension at home although BP has been elevated here, possibly stress/ hospital induced. -patient started on Bystolic 5mg qd. Continue. -continue to monitor BP, adjust antihypertensive as needed -continue clonidine prn -needs outpatient f/up with PCP Hyperlipidemia: lipid panel revealed elevated cholesterol 212 and LDL 141 -started on pravastatin 20mg hs. Continue -needs outpatient f/up with PCP DVT Prophylaxis: teds/SCDs Discussed with patient, and Dr. Hunt Discharge Planning Patient for neurosurgical intervention today Heaven Whitfield Jun 22, 2017 10:02
[2017-06-22] MEDS ORDERED: SODIUM CHLORID 0.9% 500 ML IV PRN (11:45)
[2017-06-22] MEDS ORDERED: CHLORHEXIDINE GLUCONATE 2 % 1 PACK (2 CLOTHS) TOPICAL PRN (11:45)
[2017-06-22] MEDS ORDERED: METOPROLOL TARTRATE 25 MG TAB PO PRN (11:45)
[2017-06-22] MEDS ORDERED: INSULIN HUMAN REGULAR 1,000 UNITS/10 ML VIAL SQ PRN (11:45)
[2017-06-22] MEDS ORDERED: POVIDONE IODINE 5% (ANTISEPSIS KIT) 4 APPLICATIONS EACH NARE PRN (11:45)
[2017-06-22] MEDS ORDERED: LACTATED RINGER'S 1000 ML IV PRN (11:45)
[2017-06-22] MEDS: ACETAMINOPHEN/HYDROcodone 325 MG/5 MG TAB PO PRN ×2 (12:15→22:16)
[2017-06-22 15:55] VITALS: BP 156/77; PULSE 67; RESP 16; TEMP 97.6; O2SAT 99
--- NOTE | 2017-06-22 16:23 | HHI.NSPN ---
(Kristy Massey) Note Status Status: Progress Note (Kristy Massey) Interval History Interval History This is a 47-year-old male presents with a day history of bilateral upper extremity weakness. The patient states that he developed sharp pains in his bilateral shoulders which has occurred before. He then states that he noticed that both of his hands and forearms became weak and he was no longer able to lift anything or close his hands. This is a new symptom for him. He continues to have problems with extension of his right fingers and has significant decreased event representative strength. He reports pain in his shoulders He also reports severe lower back pain associated with bilateral upper extremity weakness, right greater than the left. The patient states that he has had episodes of brief short lasting sudden sharp pain for 2 years duration where he would suddenly feel severe pain between the shoulder blades burning in character that lasts 10-15 seconds, tends to radiate down to the both upper extremities followed by mild weakness and typically, "goes away." He usually try to bend over to relieve the pain in the arms. The patient cannot think of any relation or correlation to a certain movement, exercise, dehydration or any other triggering factor. He has a history of neck trauma in the past. He denies chronic neck pain. He only endorses those brief episodes that are infrequent and he states that he talked about it with the primary care physician but being so infrequent made him just not follow it up. The also states that may be sometimes they are stress-related. During the episode the patient other than the pain the patient feels a racing heart. Denies acid reflux, chest pain or profuse sweating during the episode. What made him come yesterday is the episode was recurrent and it was more intense, however short-lived and this was followed by arm weakness, mainly the right upper extremity with pain in the elbow and right hand. He denies sensory symptoms, sphincter control disturbances and he also endorses pain in both shoulders. MRI cervical spine showed cervical spinal stenosis. Neurosurgical consultation was requested. 06/22: no changes, surgery rescheduled for tomorrow morning (Kristy Massey) Labs, Micro, & Vital Signs Results Date Time Temp Pulse Resp B/P (MAP) Pulse Ox O2 Delivery O2 Flow Rate FiO2 06/22/17 15:55 97.6 67 16 156/77 (103) 99 06/22/17 07:27 97.5 52 18 147/90 (109) 98 06/22/17 02:41 98.1 52 18 151/98 (115) 96 06/21/17 19:57 97.7 70 18 119/76 (90) 96 Constitutional Vital Signs Date Time Temp Pulse Resp B/P (MAP) Pulse Ox O2 Delivery O2 Flow Rate FiO2 06/22/17 15:55 97.6 67 16 156/77 (103) 99 06/22/17 07:27 97.5 52 18 147/90 (109) 98 06/22/17 02:41 98.1 52 18 151/98 (115) 96 06/21/17 19:57 97.7 70 18 119/76 (90) 96 (Kristy Massey) Physical Exam Mr Kuhn is alert, awake and oriented to time, place and person. Speech is fluent. Cranial nerve examination: pupils to be equal, round, and reactive to light. Extra-ocular movements are intact. Facial motor are normal and symmetrical. Sternocleidomastoid and trapezius muscles have normal and symmetrical strength. Other cranial nerves are intact. Cervical spine has a decreased range of motion in anterior flexion, extension, lateral bending, and rotation without pain. Muscle strength is 4+ to 5-/5 deltoid, biceps, triceps and 4-/5 event representative. In the lower extremities, strength is 5/5 in both iliopsoas, quadriceps, hamstrings, plantar flexion, dorsiflexion, and extensor hallicus longus. Sensory examination is intact to light touch and sharp/dull discrimination in both the upper and lower extremities, symmetrically. Deep tendon reflexes are trace biceps, brachioradialis in the upper extremities. In the lower extremities, the patellar and Achilles are 2+, bilaterally. There is a bilateral plantar flexion response. Hoffmanns sign is negative. There is no ankle clonus Cerebellar examination is intact to [id number] test (Kristy Massey) Mr Kuhn is alert, awake and oriented to time, place and person. Speech is fluent. Cranial nerve examination: pupils to be equal, round, and reactive to light. Extra-ocular movements are intact. Facial motor are normal and symmetrical. Sternocleidomastoid and trapezius muscles have normal and symmetrical strength. Other cranial nerves are intact. Cervical spine has a decreased range of motion in anterior flexion, extension, lateral bending, and rotation without pain. Muscle strength is 4+ to 5-/5 deltoid, biceps, triceps and 4-/5 event representative. In the lower extremities, strength is 5/5 in both iliopsoas, quadriceps, hamstrings, plantar flexion, dorsiflexion, and extensor hallicus longus. Sensory examination is intact to light touch and sharp/dull discrimination in both the upper and lower extremities, symmetrically. Deep tendon reflexes are trace biceps, brachioradialis in the upper extremities. In the lower extremities, the patellar and Achilles are 2+, bilaterally. There is a bilateral plantar flexion response. Hoffmanns sign is negative. There is no ankle clonus Cerebellar examination is intact to [id number] test (Se De Luna MD) Medications Current Medications Current Medications Medications (Trade) Dose Ordered Sig/Ryan Route PRN Reason Start Time Stop Time Status Last Admin Dose Admin Sodium Chloride (NS Flush) 2 ml UNSCH PRN IV FLUSH FLUSH AFTER USING IV ACCESS 06/18/17 23:45 Sodium Chloride (NS Flush) 2 ml BID IV FLUSH 06/19/17 09:00 06/22/17 08:47 Acetaminophen (Tylenol) 650 mg Q4H PRN PO headache/fever/pain1-5 06/18/17 23:45 06/20/17 10:31 Ondansetron HCl (Zofran Inj) 4 mg Q6H PRN IVP NAUSEA OR VOMITING 06/18/17 23:45 Naloxone HCl (Narcan Inj) 0.4 mg UNSCH PRN IV PUSH SEE LABEL COMMENTS 06/18/17 23:45 Clonidine (Catapres) 0.2 mg Q6H PRN PO SBP>160, DBP>90 06/19/17 01:15 Nebivolol (Bystolic) 5 mg DAILY PO 06/19/17 09:00 06/22/17 08:45 Pravastatin Sodium (Pravachol) 20 mg HS PO 06/19/17 21:00 06/21/17 20:23 Acetaminophen/ Hydrocodone Bitart (Sidman 5-325 Mg) 1 tab Q6H PRN PO pain 6-10 06/21/17 08:45 06/22/17 12:15 Chlorhexidine Gluconate (Hibiclens 4% Top Soln) 1 applic HS TOP 06/21/17 21:00 06/23/17 21:01 06/21/17 21:00 Lactated Ringer's 1,000 ml @ 30 mls/hr Q24H PRN IV SEE LABEL COMMENTS 06/22/17 11:45 06/25/17 11:44 Sodium Chloride 500 ml @ 30 mls/hr [id number] PRN IV SEE LABEL COMMENTS 06/22/17 11:45 06/25/17 11:44 Metoprolol Tartrate (Lopressor) 25 mg SQL BI DEVELOPER PRN PO SEE LABEL COMMENTS 06/22/17 11:45 06/25/17 11:44 Povidone Iodine (Betadine 5% Antisepsis Kit) 1 applic SQL BI DEVELOPER PRN EACH NARE SEE LABEL COMMENTS 06/22/17 11:45 06/25/17 11:44 Chlorhexidine Gluconate (Chlorhexidine 2% Cloth) 3 pack SQL BI DEVELOPER PRN TOPICAL SEE LABEL COMMENTS 06/22/17 11:45 06/25/17 11:44 06/22/17 13:00 Insulin Human Regular (NovoLIN R INJ) See Protocol Table ... SQL BI DEVELOPER PRN SQ SEE PROTOCOL TABLE 06/22/17 11:45 06/25/17 11:44 (Kristy Massey) Medical Decision Making MDM Remarks 47 year old male, upper extremity weakness, multilevel spinal stenosis worse at C5-6 (Kristy Massey) Plan Plan Remarks to OR tomorrow am for C5-6 anterior cervical discectomy and arthrodhesis with PEEK cage, plate and screws he may restart diet today, NPO again at midnight tonight (Kristy Massey) Plan Remarks Caprini VTE Risk Assessment Caprini VTE Risk Assessment: No/Low Risk (score <= 1) Caprini Risk Assessment Model Point Value = 1 Point Value = 2 Point Value = 3 Point Value = 5 Age 41-60 Minor surgery BMI > 25 kg/m2 Swollen legs Varicose veins or History of unexplained or recurrent spontaneous Oral contraceptives or hormone replacement Sepsis (< 1 month) Serious lung disease, including pneumonia (< 1 month) Abnormal pulmonary function Acute myocardial infarction Congestive heart failure (< 1 month) History of inflammatory bowel disease Medical patient at bed rest Age 61-74 Arthroscopic surgery Major open surgery (> 45 min) Laparoscopic surgery (> 45 min) Malignancy Confined to bed (> 72 hours) Immobilizing plaster cast Central venous access Age >= 75 History of VTE Family history of VTE Factor V Leiden Prothrombin [id number] Lupus anticoagulant Anticardiolipin antibodies Elevated serum homocysteine Heparin-induced thrombocytopenia Other congenital or acquired thrombophilia Stroke (< 1 month) Elective arthroplasty Hip, pelvis, or leg fracture Acute spinal cord injury (< 1 month) Prophylaxis Regimen Total Risk Factor Score Risk Level Prophylaxis Regimen 0-1 Low Early ambulation 2 Moderate Order ONE of the following: *Sequential Compression Device (SCD) *Heparin 5000 units SQ BID 3-4 Higher Order ONE of the following medications: *Heparin 5000 units SQ TID *Enoxaparin/Lovenox 40 mg SQ daily (WT < 150 kg, CrCl > 30 mL/min) *Enoxaparin/Lovenox 30 mg SQ daily (WT < 150 kg, CrCl > 10-29 mL/min) *Enoxaparin/Lovenox 30 mg SQ BID (WT < 150 kg, CrCl > 30 mL/min) AND/OR *Sequential Compression Device (SCD) 5 or more Highest Order ONE of the following medications: *Heparin 5000 units SQ TID (Preferred with Epidurals) *Enoxaparin/Lovenox 40 mg SQ daily (WT < 150 kg, CrCl > 30 mL/min) *Enoxaparin/Lovenox 30 mg SQ daily (WT < 150 kg, CrCl > 10-29 mL/min) *Enoxaparin/Lovenox 30 mg SQ BID (WT < 150 kg, CrCl > 30 mL/min) AND *Sequential Compression Device (SCD) (Se De Luna MD) Attending Statement I again discussed with him the alternatives of treatment. He remains very weak particularly in his upper extremities. He may benefit by a surgical decompression. He has multilevel spinal; stenosis, worse at C5-6. Recommend consideration to a C5-6 anterior cervical discectomy and arthrodhesis with PEEK cage, plate and screws. We have discussed the details including the step-by- step details of the surgical procedure, its indications, alternatives, risks, and potential complications. Risks and potential complications include, but are not limited to, infection, blood loss, CSF leak, partial or complete loss of sight in one or both eyes, paresis, paralysis, permanent pain or difficulty swallowing, loss of bowel or bladder function, complications from anesthesia, blood clot, stroke, myocardial infarction, or even . Continue Pulmonary.aggressive pulmonary toilette, nasotracheal suction, and breathing treatments with nebulizers. PT evaluation Nutrition. Continue Oral diet Renal. monitor closely urine output, BUN and creatinine Endocrine. Monitor serial Acu checks and SSI as needed in detail ID monitor for signs of infection Continue Protonix for stress ulcer prophylaxis Continue Danny hose and SCD's for DVT prophylaxis. (Se De Luna MD) Kristy Massey Jun 22, 2017 16:23 Se De Luna MD Jun 22, 2017 21:35
[2017-06-22 20:44] VITALS: BP 134/83; PULSE 66; RESP 17; TEMP 98; O2SAT 96
[2017-06-22] MEDS: CHLORHEXIDINE GLUCONATE 4% SOLN 120 ML BTL TOP SCH (21:00)
[2017-06-22] MEDS: PRAVASTATIN SOD 20 MG TAB PO SCH (22:17)
[2017-06-22 23:46] VITALS: BP 141/85; PULSE 75; RESP 18; TEMP 97.7; O2SAT 97
[2017-06-23 03:15] VITALS: BP 116/72; PULSE 53; RESP 18; TEMP 97.8; O2SAT 96
[2017-06-23] MEDS ORDERED: MICROFIBRILLAR COLLAGEN HEMOSTAT 70 X 35 MM BANDAGE ONE (07:25)
[2017-06-23] MEDS ORDERED: GELFOAM SIZE 100 ONE (07:25)
[2017-06-23] MEDS ORDERED: ceFAZolin 2 GM PREMIX 50 ML ONE (07:25)
[2017-06-23] MEDS ORDERED: THROMBIN (TOPICAL) 5,000 UNIT VIAL ONE (07:25)
[2017-06-23] MEDS ORDERED: GENTAMICIN SULFATE 80 MG/2 ML VIAL ONE (07:26)
[2017-06-23] MEDS ORDERED: VANCOMYCIN HCL 1000 MG VIAL ONE (09:24)
[2017-06-23] MEDS ORDERED: SODIUM CHLOR 0.9% 250 ML INJ 250 ML ONE (09:24)
[2017-06-23] MEDS ORDERED: DO NOT ADM ANY ANTICOAGULANT DRUGS PRN (11:40)
[2017-06-23] MEDS: SODIUM CHLOR 0.9% 1000 ML INJ 1,000 ML IV SCH ×2 (11:48→21:38)
[2017-06-23] MEDS ORDERED: LACTATED RINGER'S 1000 ML INJ 1,000 ML IV ONE (12:00)
[2017-06-23] MEDS ORDERED: PROPOFOL 200 MG/20 ML AMP IV ONE (12:00)
[2017-06-23] MEDS ORDERED: GLYCOPYRROLATE 1 MG/5 ML SYRINGE IV PUSH ONE (12:00)
[2017-06-23] MEDS ORDERED: ONDANSETRON HCL 4 MG/2 ML VIAL IV PUSH PRN (12:00)
[2017-06-23] MEDS ORDERED: BISACODYL 10 MG SUPP RECTAL PRN (12:00)
[2017-06-23] MEDS ORDERED: MENTHOL LOZENGE BUCCAL PRN (12:00)
[2017-06-23] MEDS ORDERED: MAGNESIUM HYDROXIDE SUSP 30 ML CUP PO PRN (12:00)
[2017-06-23] MEDS ORDERED: SODIUM CHLORIDE 0.9% FLUSH 5 ML FLUSH IVF PRN (12:00)
[2017-06-23] MEDS ORDERED: DEXAMETHASONE SOD PHOS 4 MG/ML VIAL IV ONE (12:00)
[2017-06-23] MEDS ORDERED: ONDANSETRON HCL 4 MG/2 ML VIAL IV PUSH ONE (12:00)
[2017-06-23] MEDS ORDERED: ROCURONIUM INJ 50 MG/5 ML SYRINGE IV PUSH ONE (12:00)
[2017-06-23] MEDS ORDERED: MIDAZOLAM HCL 2 MG/2 ML VIAL IV ONE (12:00)
[2017-06-23] MEDS ORDERED: LIDOCAINE HCL 1% PF 5 ML AMPULE OTHER ONE (12:00)
[2017-06-23] MEDS ORDERED: MORPHINE SULFATE 4 MG/ML INJ IV PUSH PRN ×2 (12:00)
[2017-06-23] MEDS ORDERED: LABETALOL HCL 100 MG/20 ML VIAL ONE (12:33)
[2017-06-23] MEDS ORDERED: *morphine SULFATE 8 MG/ML PERIprocedure ONLY ONE ×3 (12:39→14:28)
--- NOTE | 2017-06-23 13:00 | PD.OP ---
Operative Report Date of Surgery: Jun 23, 2017 Preoperative Diagnosis: Cervical spinal stenosis Postoperative Diagnosis: Cervical spinal stenosis Procedure: C5 6 anterior cervical discectomy, interbody arthrodesis using peek cage filled with autologous bone graft, C5-C6 instrumented fixation using simplicity plate and screws Anesthesia: general Surgeon: Se De Luna Bunker Worker(s): Marie Hubbard Operation and Findings: INDICATIONS FOR THE PROCEDURE Mr Kuhn is a 47 year-old male who presented with intractable neck pain, upper extremity weakness, and clinical evidence of upper extremity C6 radiculopathy. The patient has failed nonsurgical management. A surgical decompression and arthrodhesis were indicated. The [id number] details of the procedure, indications, alternatives, risks and potential complications were fully discussed with the patient. The patient fully understood. All The questions were answered. No guarantees were given. The patient voiced requesting the procedure and provided informed consents. The patient was offered the alternative of delaying the procedure and continuing with nonsurgical management. DETAILS OF THE SURGICAL PROCEDURE After the induction of general anesthesia, endotracheal intubation was performed. A Blake catheter, bilateral PHUONG hose, and sequential compression devices were placed and kept throughout the procedure. The patient was positioned supine on a Kavon table with the head over a gel doughnut. All pressure points were carefully padded with egg crate mattress. The eyes were tapped shut after ointment was applied by the anesthesiologist to prevent corneal abrasion. A Ever hugger was placed over the exposed lower body to maintain control of the core body temperature. The electrophysiological team placed the needles and electrodes in their proper location and baseline SSEP's and motor evoked potentials were registered. The anterior cervical region was prepped and draped in the usual sterile fashion. A localizing x-ray was performed with a C-arm. The surgical procedure was performed in several steps as follow: SURGICAL APPROACH A skin incision was made along the middle cervical crease with a #10 blade. The dissection was carried out through the platysma exposing the sternocleidomastoid muscle. The cervical spine was approached following the fascial layers of the neck just medial to the anterior border of the sternocleidomastoid and carotid sheath by a combination of sharp and dull dissection. The omohyoid muscle was identified and carefully dissected laterally and the deep cervical fascia was carefully opened. The longus colli muscles were retracted to each side of the midline. A marker was placed at the disc space C5-6 and a cross-table lateral x-ray performed with a C-arm. SURGICAL DECOMPRESSION In order to decompress the anterior surface of the spinal cord it was necessary to preform a microsurgical resection of the disk. At this point in the procedure the operating microscope was draped in the usual sterile fashion and brought to the field. The rest of the surgical procedure was performed using microdissection technique with the exception of the closure. Under the operative microscopic, an anterior osteophytic spur was carefully removed using the leksell, and a self-retaining retractor was placed underneath the longus colli muscle. The annulus at C5-6 was incised with a #15 blade and microdiscectomy was then carefully carried out using angled curets and pituitary forceps. The patient had a posterior osteophytic/disk complex which was producing mass affect on the anterior surface of the dural sac. This was carefully drilled with a TPS drill and resected with a think foot plate 2mm kerrison under high magnification. The posterior longitudinal ligament was then elevated with an angled curet and incised with a 15 bladed knife. A careful ressection of the posterior longitudinal ligament was carried out using a thin footplate 2 mm Kerrison. The decompression was then carried out laterally , and a bilateral foraminotomy was performed with a 2mm thin foot Kerrison. Then the vertebral bodies above and below the disk space were undercut using a 2 mm thin foot Kerrison. The epidural space was the systematically assessed with a nerve hook in search for disk fragments. An excellent decompression was achieved in both, the dural sac and bilateral exiting nerve roots. The incision was then irrigated with a large amount of antibiotic solution INTERBODY ARTHRODHESIS In order to avoid collapse of the disk space which would result in bilateral foraminal stenosis, and to increase the chances of a successful fusion, it was necessary to place an interbody cage filled with autologous bone. At this point of the procedure, the superior and inferior endplates were then evenly decorticated with a TPS drill. The use of a drill in combination with a curette allowed me to systematically remove the cartilaginous endplates, exposing healthy bone for the interbody arthrodesis. forteen millimeters distraction pins were then placed at the vertebral bodies adjacent to the disk space, and gentle distraction was applied. The size of the interbody cage was then assessed using different size spacers, and a rasp was used to ensure no residual cartilage. A PEEK cage of the appropriate size was selected, and the interbody arthrodesis was then preformed by carefully impacting a PEEK cage filled with autologous bone graft to the disc space C5-6. An excellent position of the cage was achieved. This was was confirmed anatomically by feelling the space posterior to the implant and distance to the anterior surface of the dural sac. Radiological confirmation of the position was performed with a cross lateral xray performed with the C-arm. INTERNAL INSTRUMENTAL FIXATION Once that the interbody device was in an appropriate position, it was necessary to stabilize the spine with anterior instrumentation. Anterior instrumentation has demonstrated to increase the rate of fusion, acelerate the patient's recovery, and decrease the rate of failed interbody grafts. At this point of the procedure, the distance between the vertebral bodies was carefully measures, and a Simplicity plate was brought to the field and presented in front of the C5 and 6 vertebral bodies. Principal Systems Architect holes were then drilled using the TPS drill, and the plate was then secured to the spine using self-drilling, self-tapping screws. Initially, the inferior right screw was inserted, followed by placement of the contra lateral upper screw. The remaining screws were sequentially placed in a contra-lateral fashion. A proper purchase was achieved with all screws and the position of the cage, plate and screws, and alignment of the spine was assessed anatomically by direct visualization, and radiologically by performing a cross lateral xray of the cervical spine with the C-arm. CLOSURE The incision was irrigated with several liters of antibiotic solution. Hemostasis was achieved with a bipolar. The screws were locked to prevent backing out. A 7 mm Kavon-Wei drain was left in the prevertebral space and externalized through a separate stab incision. The incision was then closed in layers. 3-0 Vicryl with interrupted sutures was used to close the platysma and subcutaneous tissue. The skin was closed with 4-0 running subcuticular Vicryl and Dermabond was applied to the skin. The drain was secured with a 3-0 nylon. At the end of the procedure the sponge, needle and instrument counts were all correct. The estimated blood loss was less than 50 cc. No blood transfusion was given. No intraoperative complications occurred. The patient received prophylactic antibiotics. The patient was then extubated and transferred to the recovery room in stable condition. Se De Luna MD Jun 23, 2017 13:00
[2017-06-23] MEDS: DEXAMETHASONE SOD PHOS 4 MG/ML VIAL IV PUSH SCH ×2 (15:00→21:36)
--- NOTE | 2017-06-23 15:51 | RADRPT ---
EXAM DATE/TIME: 06/23/2017 08:56 [facility] COMPARISON: No previous studies available for comparison. INDICATIONS : Fusion C5,C6 with screw and plate placement. MEDICAL HISTORY : Hypertension. Cardiovascular disease SURGICAL HISTORY : None. ENCOUNTER: Subsequent ACUITY: 3 days PAIN SCORE: Non-responsive. LOCATION: Cervical spine. FINDINGS: Limited to projection and examination the cervical spine reveals ventral hardware fusion at C5-6. The fusion apparatus appears intact. Alignment is anatomic. There is disc space narrowing and endplate o steophyte formation, primarily ventral also noted at the C3-4 and C4-5 levels. CONCLUSION: Satisfactory appearance of cervical fusion hardware Gelacio Saucedo MD on June 23, 2017 at 15:49 Board Certified Radiologist. This report was verified electronically.
[2017-06-23] MEDS: ACETAMINOPHEN/HYDROcodone 325 MG/10 MG TAB PO PRN ×2 (16:05→21:39)
--- NOTE | 2017-06-23 16:20 | HHI.PR ---
Subjective Remarks The patient was seen following surgery. He said his pain was controlled. He would like something to eat. Family was in the room and their questions were answered. Discussed with nursing at bedside. Objective Vitals Vital Signs Date Time Temp Pulse Resp B/P (MAP) Pulse Ox O2 Delivery O2 Flow Rate FiO2 06/23/17 14:30 86 16 146/87 (106) 94 Nasal Cannula 2 06/23/17 12:30 76 16 167/102 (123) 97 Nasal Cannula 4 06/23/17 12:15 74 16 159/94 (115) 97 Nasal Cannula 4 06/23/17 12:00 84 16 164/94 (117) 94 Nasal Cannula 4 06/23/17 11:45 86 16 187/98 (127) 94 Nasal Cannula 4 06/23/17 11:40 97.9 82 16 176/81 (112) 97 Nasal Cannula 4 06/23/17 03:15 97.8 53 18 116/72 (87) 96 06/22/17 23:46 97.7 75 18 141/85 (103) 97 06/22/17 20:44 98.0 66 17 134/83 (100) 96 I/O 06/22/17 06/22/17 06/22/17 06/23/17 06/23/17 06/23/17 07:00 15:00 23:00 07:00 15:00 23:00 Intake Total 1200 ml 250 ml Output Total 500 ml Balance 1200 ml -250 ml Intake Oral 50 ml IV Total 200 ml Other 1200 ml Output Urine Total 500 ml # Voids 1 1 Result Diagram: 06/19/1702 06/19/17 0802 Imaging Last Impressions Cervical Spine X-Ray 06/23/17 0000 Signed Impressions: Service Date/Time: Friday, June 23, 2017 08:56 - CONCLUSION: Satisfactory appearance of cervical fusion hardware Gelacio Saucedo MD Upper Extremity Ultrasound 06/22/17 0000 Signed Impressions: Service Date/Time: Thursday, June 22, 2017 09:01 - CONCLUSION: 1. No sonographic evidence for right upper extremity DVT. Tacos Enciso MD Chest X-Ray 06/21/17 0000 Signed Impressions: Service Date/Time: Wednesday, June 21, 2017 14:52 - CONCLUSION: No acute disease. Nito Khan MD FACR Cervical Spine MRI 06/19/17 0000 Signed Impressions: Service Date/Time: Monday, June 19, 2017 11:34 - CONCLUSION: 1. Multilevel cervical spine degenerative changes as detailed above. 2. High- grade bilateral foraminal stenosis at C5/C6. Also considerable right foraminal stenosis at C6/C7. 3. Mild to moderate spinal stenosis at C5/C6 and mild spinal stenosis at C3/C4, C4/C5 and C6/C7. No cord compression in the imaged position but there is patchy cord edema and/or myelomalacia from C3/C4 through C7/T1. 4. Marrow edema and reactive enhancement of the vertebral body endplates from C3/C4-C6/C7. No fracture or subluxation. 5. Incidentally seen marked tortuosity of the internal carotid arteries. Gelacio Kunz MD Neck CTA 06/18/17 1620 Signed Impressions: Service Date/Time: Sunday, June 18, 2017 17:43 - CONCLUSION: Normal examination. Diogenes Mata MD Head CTA 06/18/17 1620 Signed Impressions: Service Date/Time: Sunday, June 18, 2017 17:43 - CONCLUSION: Normal examination. Diogenes Mata MD Head CT 06/18/17 1532 Signed Impressions: Service Date/Time: Sunday, June 18, 2017 17:39 - CONCLUSION: 1. No evidence of acute intracranial pathology. No masses are identified. Jose Francisco Palencia MD Objective Remarks GENERAL: Well-nourished, well-developed middle aged male patient in NAD. Awake and alert. is at the bedside. SKIN: Warm and dry. No rash. HEENT: Normocephalic. Atraumatic. EOMI. Mucous membranes pink and moist. NECK: Supple. Trachea midline. Nontender. CARDIOVASCULAR: Regular rate and rhythm. S1, S2 noted. No murmur appreciated. RESPIRATORY: Nonlabored. Clear to auscultation. Breath sounds equal bilaterally. GASTROINTESTINAL: Abdomen soft, non-tender, nondistended. Normoactive bowel sounds x4. MUSCULOSKELETAL: No obvious deformities. Extremities without clubbing or cyanosis. (+)mild nonpitting edema noted in the right hand. NEUROLOGICAL: Awake and alert. No obvious cranial nerve deficits. 4/5 strength of bilateral upper extremities, worse with 4-/5 boiler water tester strength of the right hand. 5/5 muscle strength in bilateral lower extremities. Bilateral upper and lower extremity sensation equal and intact. Normal speech. No pronator drift. No facial droop, lid lag, tongue deviation. PSYCHIATRIC: Appropriate mood and affect; insight and judgment normal. Procedures C5-6 anterior cervical discectomy, interbody arthrodesis using peek cage filled with autologous bone graft, C5-C6 instrumented fixation using simplicity plate and screws 06/23 Medications and IVs Current Medications Medications (Trade) Dose Ordered Sig/Ryan Route Start Time Stop Time Status Last Admin (Tylenol) 650 mg Q4H PRN PO 06/18/17 23:45 06/20/17 10:31 (Narcan Inj) 0.4 mg UNSCH PRN IV PUSH 06/18/17 23:45 (Catapres) 0.2 mg Q6H PRN PO 06/19/17 01:15 (Bystolic) 5 mg DAILY PO 06/19/17 09:00 06/22/17 08:45 (Pravachol) 20 mg HS PO 06/19/17 21:00 06/22/17 22:17 (Lopressor) 25 mg ROTARY HELPER PRN PO 06/22/17 11:45 06/25/17 11:44 (Betadine 5% Antisepsis Kit) 1 applic ROTARY HELPER PRN EACH NARE 06/22/17 11:45 06/25/17 11:44 (Chlorhexidine 2% Cloth) 3 pack ROTARY HELPER PRN TOPICAL 06/22/17 11:45 06/25/17 11:44 06/22/17 13:00 (NovoLIN R INJ) See Protocol Table ... ROTARY HELPER PRN SQ 06/22/17 11:45 06/25/17 11:44 Sodium Chloride 1,000 ml @ 100 mls/hr Q10H IV 06/23/17 11:48 06/23/17 11:48 (NS Flush) 2 ml UNSCH PRN IVF 06/23/17 12:00 (NS Flush) 2 ml BID IVF 06/23/17 21:00 Cefazolin Sodium/ Dextrose 50 ml @ 100 mls/hr Q8H IV 06/23/17 17:00 06/24/17 09:29 (Dulcolax Supp) 10 mg DAILY PRN RECTAL 06/23/17 12:00 (Colace) 100 mg BID PO 06/23/17 21:00 (Milk Of Magnesia Liq) 30 ml DAILY PRN PO 06/23/17 12:00 (Protonix) 40 mg DAILY PO 06/24/17 09:00 (Zofran Inj) 4 mg Q6H PRN IV PUSH 06/23/17 12:00 ([place] 10-325 Mg) 1 tab Q4H PRN PO 06/23/17 12:00 ([place] 10-325 Mg) 2 tab Q4H PRN PO 06/23/17 12:00 06/23/17 16:05 (Morphine Inj) 2 mg Q2H PRN IV PUSH 06/23/17 12:00 (Morphine Inj) 4 mg Q2H PRN IV PUSH 06/23/17 12:00 (Flexeril) 10 mg Q8H PRN PO 06/23/17 12:00 (Decadron Inj) 4 mg Q6H IV PUSH 06/23/17 15:00 06/23/17 15:00 ([place] Venancio) 1 lozenge UNSCH PRN BUCCAL 06/23/17 12:00 (Albuterol Neb) 2.5 mg Q4HR NEB PRN INH 06/23/17 12:00 (Hibiclens 4% Top Soln) 1 applic HS TOP 06/23/17 21:00 06/25/17 21:01 Miscellaneous Information ALL NURSING DEPARTME... UNSCH PRN .XX 06/23/17 11:40 06/24/17 11:39 (Albuterol Concentrated Neb) 2.5 mg Q4HR NEB NEB 06/23/17 16:00 A/P Problem List: (1) Bilateral arm weakness ICD Code: R29.898 - Other symptoms and signs involving the musculoskeletal system Status: Acute Assessment and Plan 47-year-old male with no significant past medical history presents with a 1 day history of bilateral upper extremity weakness and numbness Cervical Myelopathy with Bilateral Upper Extremity Weakness/Numbness: rule out CVA vs cervical spine etiology. Head CT and Head/Neck CTA images reviewed, no acute findings. C-spine MRI images reviewed, shows high-grade bilateral foraminal stenosis at C5/C6; considerable right foraminal stenosis at C6/C7; Mild to moderate spinal stenosis at C5/C6 and mild spinal stenosis at C3/C4, C4/ C5 and C6/C7; No cord compression in the imaged position but there is patchy cord edema and/or myelomalacia from C3/C4 through C7/T1; Marrow edema and reactive enhancement of the vertebral body endplates from C3/C4-C6/C7; No fracture or subluxation. -Consult neurology, appreciate recommendations from Dr. Rodríguez -Continue neuro checks -Consult PT/OT, recommends [facility] -Consult neurosurgery, s/p C5 6 anterior cervical discectomy, interbody arthrodesis using peek cage filled with autologous bone graft, C5-C6 instrumented fixation using simplicity plate and screws 06/23. Further management per NS. RUE edema -mild -suspect due to cervical nerve impingement -obtain RUE duplex US to r/o DVT. Negative. Accelerated Hypertension: BP 190/109 in the ED. Patient denies history of hypertension at home although BP has been elevated here, possibly stress/ hospital induced. -patient started on Bystolic 5mg qd. Continue. -continue to monitor BP, adjust antihypertensive as needed -continue clonidine prn -needs outpatient f/up with PCP Hyperlipidemia: lipid panel revealed elevated cholesterol 212 and LDL 141 -started on pravastatin 20mg hs. Continue -needs outpatient f/up with PCP DVT Prophylaxis: teds/SCDs Elmer Fernandez DO Jun 23, 2017 16:20
[2017-06-23] MEDS: ceFAZolin 2 GM PREMIX 50 ML IV SCH (18:30)
[2017-06-23] MEDS: CYCLOBENZAPRINE HCL 10 MG TAB PO PRN (18:59)
[2017-06-23 20:00] VITALS: BP 131/65; PULSE 98; RESP 18; TEMP 98.2; O2SAT 94
[2017-06-23] MEDS: RESP: ALBUTEROL CONC 2.5 MG/0.5 ML NEB NEB SCH (20:00)
[2017-06-23] MEDS: CHLORHEXIDINE GLUCONATE 4% SOLN 120 ML BTL TOP SCH (21:00)
[2017-06-23] MEDS: SODIUM CHLORIDE 0.9% FLUSH 5 ML FLUSH IVF SCH (21:00)
[2017-06-23] MEDS: PRAVASTATIN SOD 20 MG TAB PO SCH (21:36)
[2017-06-23] MEDS: DOCUSATE SODIUM 100 MG CAP PO SCH (21:36)
[2017-06-24] VITALS (10 sets, daily range): BP systolic 134–171; BP diastolic 65–94; PULSE 70–113; RESP 18–20; TEMP 97.4–98.3; O2SAT 86–97
[2017-06-24] MEDS: RESP: ALBUTEROL CONC 2.5 MG/0.5 ML NEB NEB SCH ×6 (00:19→20:00)
[2017-06-24] MEDS: ceFAZolin 2 GM PREMIX 50 ML IV SCH ×2 (02:58→08:07)
[2017-06-24] MEDS: DEXAMETHASONE SOD PHOS 4 MG/ML VIAL IV PUSH SCH ×4 (02:59→21:27)
[2017-06-24] MEDS: ACETAMINOPHEN/HYDROcodone 325 MG/10 MG TAB PO PRN ×5 (04:12→21:27)
[2017-06-24] MEDS: RESP: ALBUTEROL 2.5 MG/3 ML NEB (PRN) INH ×5 (04:41→20:31)
[2017-06-24] MEDS: SODIUM CHLOR 0.9% 1000 ML INJ 1,000 ML IV SCH ×2 (07:48→17:48)
[2017-06-24] MEDS: PANTOPRAZOLE SOD 40 MG DELAYED RELEASE TAB PO SCH (08:05)
[2017-06-24] MEDS: NEBIVOLOL 5 MG TAB PO SCH ×2 (09:00→09:48)
[2017-06-24] MEDS: SODIUM CHLORIDE 0.9% FLUSH 5 ML FLUSH IVF SCH ×2 (09:00→21:00)
[2017-06-24] MEDS: DOCUSATE SODIUM 100 MG CAP PO SCH ×2 (09:48→21:27)
[2017-06-24 10:26] LABS: HEMATOCRIT 42.1 % (39.0-51.0); MEAN CELL VOLUME 88.6 FL (80.0-100.0); MEAN CORPUSCULAR HEMOGLOBIN 29.7 PG (27.0-34.0); MEAN CORPUSCULAR HGB CONC 33.5 % (32.0-36.0); PLATELET COUNT 160 TH/MM3 (150-450); RED BLOOD COUNT 4.75 MIL/MM3 (4.50-5.90); RED CELL DISTRIBUTION WIDTH 13.5 % (11.6-17.2); REVIEW FLAG FINAL
[2017-06-24 10:45] LABS: BICARBONATE 21.2 MEQ/L (21.0-32.0); MAGNESIUM 2.1 MG/DL (1.5-2.5)
--- NOTE | 2017-06-24 12:00 | HHI.PR ---
Subjective Remarks The patient said that he was having trouble swallowing Coke. He said he was swallowing other fluids fine. He said he has been sleeping. He says he has been taking half of his pain medications. No other acute concerns. Discussed with nursing. Objective Vitals Vital Signs Date Time Temp Pulse Resp B/P (MAP) Pulse Ox O2 Delivery O2 Flow Rate FiO2 06/24/17 08:15 91 Nasal Cannula 1.50 06/24/17 08:00 98.0 113 18 171/94 (119) 97 06/24/17 04:45 86 06/24/17 04:00 97.5 106 18 138/72 (94) 95 06/24/17 01:21 89 06/24/17 00:00 97.8 92 18 140/65 (90) 92 06/23/17 20:00 98.2 98 18 131/65 (87) 94 06/23/17 14:30 86 16 146/87 (106) 94 Nasal Cannula 2 06/23/17 12:30 76 16 167/102 (123) 97 Nasal Cannula 4 06/23/17 12:15 74 16 159/94 (115) 97 Nasal Cannula 4 06/23/17 12:00 84 16 164/94 (117) 94 Nasal Cannula 4 I/O 06/23/17 06/23/17 06/23/17 06/24/17 06/24/17 06/24/17 07:00 15:00 23:00 07:00 15:00 23:00 Intake Total 1200 ml 250 ml 154 ml Output Total 500 ml Balance 1200 ml -250 ml 154 ml Intake Oral 50 ml IV Total 200 ml 154 ml Other 1200 ml Output Urine Total 500 ml # Voids 1 3 Result Diagram: 06/24/1715 06/24/1715 Imaging Last Impressions Cervical Spine X-Ray 06/23/17 0000 Signed Impressions: Service Date/Time: Friday, June 23, 2017 08:56 - CONCLUSION: Satisfactory appearance of cervical fusion hardware Gelacio Saucedo MD Upper Extremity Ultrasound 06/22/17 0000 Signed Impressions: Service Date/Time: Thursday, June 22, 2017 09:01 - CONCLUSION: 1. No sonographic evidence for right upper extremity DVT. Tacos Enciso MD Chest X-Ray 06/21/17 0000 Signed Impressions: Service Date/Time: Wednesday, June 21, 2017 14:52 - CONCLUSION: No acute disease. Nito Khan MD FACR Cervical Spine MRI 06/19/17 0000 Signed Impressions: Service Date/Time: Monday, June 19, 2017 11:34 - CONCLUSION: 1. Multilevel cervical spine degenerative changes as detailed above. 2. High- grade bilateral foraminal stenosis at C5/C6. Also considerable right foraminal stenosis at C6/C7. 3. Mild to moderate spinal stenosis at C5/C6 and mild spinal stenosis at C3/C4, C4/C5 and C6/C7. No cord compression in the imaged position but there is patchy cord edema and/or myelomalacia from C3/C4 through C7/T1. 4. Marrow edema and reactive enhancement of the vertebral body endplates from C3/C4-C6/C7. No fracture or subluxation. 5. Incidentally seen marked tortuosity of the internal carotid arteries. Gelacio Kunz MD Neck CTA 06/18/17 1620 Signed Impressions: Service Date/Time: Sunday, June 18, 2017 17:43 - CONCLUSION: Normal examination. Diogenes Mata MD Head CTA 06/18/17 1620 Signed Impressions: Service Date/Time: Sunday, June 18, 2017 17:43 - CONCLUSION: Normal examination. Diogenes Mata MD Head CT 06/18/17 1532 Signed Impressions: Service Date/Time: Sunday, June 18, 2017 17:39 - CONCLUSION: 1. No evidence of acute intracranial pathology. No masses are identified. Jose Francisco Palencia MD Objective Remarks GENERAL: Well-nourished, well-developed middle aged male patient in NAD. Awake and alert. is at the bedside. SKIN: Warm and dry. No rash. HEENT: Normocephalic. Atraumatic. EOMI. Mucous membranes pink and moist. NECK: Supple. Trachea midline. Nontender. CARDIOVASCULAR: Regular rate and rhythm. S1, S2 noted. No murmur appreciated. RESPIRATORY: Nonlabored. Clear to auscultation. Breath sounds equal bilaterally. GASTROINTESTINAL: Abdomen soft, non-tender, nondistended. Normoactive bowel sounds x4. MUSCULOSKELETAL: No obvious deformities. Extremities without clubbing or cyanosis. (+)mild nonpitting edema noted in the right hand. NEUROLOGICAL: Awake and alert. No obvious cranial nerve deficits. 4/5 strength of bilateral upper extremities, worse with 4-/5 survey compiler strength of the right hand. 5/5 muscle strength in bilateral lower extremities. Bilateral upper and lower extremity sensation equal and intact. Normal speech. No pronator drift. No facial droop, lid lag, tongue deviation. PSYCHIATRIC: Appropriate mood and affect; insight and judgment normal. Procedures C5-6 anterior cervical discectomy, interbody arthrodesis using peek cage filled with autologous bone graft, C5-C6 instrumented fixation using simplicity plate and screws 06/23 Medications and IVs Current Medications Medications (Trade) Dose Ordered Sig/Ryan Route Start Time Stop Time Status Last Admin (Tylenol) 650 mg Q4H PRN PO 06/18/17 23:45 06/20/17 10:31 (Narcan Inj) 0.4 mg UNSCH PRN IV PUSH 06/18/17 23:45 (Catapres) 0.2 mg Q6H PRN PO 06/19/17 01:15 (Bystolic) 5 mg DAILY PO 06/19/17 09:00 06/24/17 09:48 (Pravachol) 20 mg HS PO 06/19/17 21:00 06/23/17 21:36 (Lopressor) 25 mg MACHINE SHOP INSTRUCTOR PRN PO 06/22/17 11:45 06/25/17 11:44 (Betadine 5% Antisepsis Kit) 1 applic MACHINE SHOP INSTRUCTOR PRN EACH NARE 06/22/17 11:45 06/25/17 11:44 (Chlorhexidine 2% Cloth) 3 pack MACHINE SHOP INSTRUCTOR PRN TOPICAL 06/22/17 11:45 06/25/17 11:44 06/22/17 13:00 (NovoLIN R INJ) See Protocol Table ... MACHINE SHOP INSTRUCTOR PRN SQ 06/22/17 11:45 06/25/17 11:44 Sodium Chloride 1,000 ml @ 100 mls/hr Q10H IV 06/23/17 11:48 06/23/17 21:38 (NS Flush) 2 ml UNSCH PRN IVF 06/23/17 12:00 (NS Flush) 2 ml BID IVF 06/23/17 21:00 06/23/17 21:00 (Dulcolax Supp) 10 mg DAILY PRN RECTAL 06/23/17 12:00 (Colace) 100 mg BID PO 06/23/17 21:00 06/24/17 09:48 (Milk Of Magnesia Liq) 30 ml DAILY PRN PO 06/23/17 12:00 (Protonix) 40 mg DAILY PO 06/24/17 09:00 06/24/17 08:05 (Zofran Inj) 4 mg Q6H PRN IV PUSH 06/23/17 12:00 ([place] 10-325 Mg) 1 tab Q4H PRN PO 06/23/17 12:00 06/24/17 04:12 ([place] 10-325 Mg) 2 tab Q4H PRN PO 06/23/17 12:00 06/24/17 08:06 (Morphine Inj) 2 mg Q2H PRN IV PUSH 06/23/17 12:00 (Morphine Inj) 4 mg Q2H PRN IV PUSH 06/23/17 12:00 (Flexeril) 10 mg Q8H PRN PO 06/23/17 12:00 06/23/17 18:59 (Decadron Inj) 4 mg Q6H IV PUSH 06/23/17 15:00 06/24/17 08:06 (Maxie Venancio) 1 lozenge UNSCH PRN BUCCAL 06/23/17 12:00 (Albuterol Neb) 2.5 mg Q4HR NEB PRN INH 06/23/17 12:00 06/24/17 08:14 (Hibiclens 4% Top Soln) 1 applic HS TOP 06/23/17 21:00 06/25/17 21:01 (Albuterol Concentrated Neb) 2.5 mg Q4HR NEB NEB 06/23/17 16:00 06/24/17 08:00 A/P Problem List: (1) Bilateral arm weakness ICD Code: R29.898 - Other symptoms and signs involving the musculoskeletal system Status: Acute Assessment and Plan 47-year-old male with no significant past medical history presents with a 1 day history of bilateral upper extremity weakness and numbness Cervical Myelopathy with Bilateral Upper Extremity Weakness/Numbness: rule out CVA vs cervical spine etiology. Head CT and Head/Neck CTA images reviewed, no acute findings. C-spine MRI images reviewed, shows high-grade bilateral foraminal stenosis at C5/C6; considerable right foraminal stenosis at C6/C7; Mild to moderate spinal stenosis at C5/C6 and mild spinal stenosis at C3/C4, C4/ C5 and C6/C7; No cord compression in the imaged position but there is patchy cord edema and/or myelomalacia from C3/C4 through C7/T1; Marrow edema and reactive enhancement of the vertebral body endplates from C3/C4-C6/C7; No fracture or subluxation. -Consult neurology, appreciate recommendations from Dr. Rodríguez -Continue neuro checks -Consult PT/OT, recommends [facility] -Consult neurosurgery, s/p C5 6 anterior cervical discectomy, interbody arthrodesis using peek cage filled with autologous bone graft, C5-C6 instrumented fixation using simplicity plate and screws 06/23. Further management per NS. Dysphagia The patient complains of having a hard time drinking Coke. Oxygen saturation has been slightly low. - Swallow evaluation requested. - Chest x-ray pending. - Oxygen as needed. RUE edema -mild -suspect due to cervical nerve impingement -obtain RUE duplex US to r/o DVT. Negative. Accelerated Hypertension: BP 190/109 in the ED. Patient denies history of hypertension at home although BP has been elevated here, possibly stress/ hospital induced. -patient started on Bystolic 5mg qd. Continue. -continue to monitor BP, adjust antihypertensive as needed -continue clonidine prn -needs outpatient f/up with PCP Hyperlipidemia: lipid panel revealed elevated cholesterol 212 and LDL 141 -started on pravastatin 20mg hs. Continue -needs outpatient f/up with PCP DVT Prophylaxis: teds/SCDs Discharge Planning Per neurosurgery Elmer Fernandez DO Jun 24, 2017 12:00
--- NOTE | 2017-06-24 12:57 | RADRPT ---
EXAM DATE/TIME: 06/24/2017 11:52 [place] COMPARISON: CHEST PA & LAT, June 21, 2017, 14:52. INDICATIONS : Short of breath. MEDICAL HISTORY : Hypertension. Cardiovascular disease SURGICAL HISTORY : Fusion, cervical. ENCOUNTER: Subsequent ACUITY: 3 days PAIN SCORE: 0/10 LOCATION: Bilateral chest FINDINGS: There is trace bibasilar atelectasis. No pleural effusion. No pneumothorax. Heart size stable, within normal limits. CONCLUSION: Trace bibasilar atelectasis. Gelacio Kunz MD on June 24, 2017 at 12:55 Board Certified Radiologist. This report was verified electronically.
[2017-06-24] MEDS: CYCLOBENZAPRINE HCL 10 MG TAB PO PRN ×2 (13:58→21:27)
--- NOTE | 2017-06-24 16:47 | HHI.NSPN ---
(Kristy Massey) Note Status Status: Progress Note (Kristy Massey) Interval History Interval History This is a 47-year-old male presents with a day history of bilateral upper extremity weakness. The patient states that he developed sharp pains in his bilateral shoulders which has occurred before. He then states that he noticed that both of his hands and forearms became weak and he was no longer able to lift anything or close his hands. This is a new symptom for him. 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 He reports pain in his shoulders He also reports severe lower back pain associated with bilateral upper extremity weakness, right greater than the left. The patient states that he has had episodes of brief short lasting sudden sharp pain for 2 years duration where he would suddenly feel severe pain between the shoulder blades burning in character that lasts 10-15 seconds, tends to radiate down to the both upper extremities followed by mild weakness and typically, "goes away." He usually try to bend over to relieve the pain in the arms. The patient cannot think of any relation or correlation to a certain movement, exercise, dehydration or any other triggering factor. He has a history of neck trauma in the past. He denies chronic neck pain. He only endorses those brief episodes that are infrequent and he states that he talked about it with the primary care physician but being so infrequent made him just not follow it up. The also states that may be sometimes they are stress-related. During the episode the patient other than the pain the patient feels a racing heart. Denies acid reflux, chest pain or profuse sweating during the episode. What made him come yesterday is the episode was recurrent and it was more intense, however short-lived and this was followed by arm weakness, mainly the right upper extremity with pain in the elbow and right hand. He denies sensory symptoms, sphincter control disturbances and he also endorses pain in both shoulders. MRI cervical spine showed cervical spinal stenosis. Neurosurgical consultation was requested. 06/22: no changes, surgery rescheduled for tomorrow morning 06/24: s/p C56 ACDF 06/23. reports to be doing well, (Kristy Massey) Labs, Micro, & Vital Signs Results Date Time Temp Pulse Resp B/P (MAP) Pulse Ox O2 Delivery O2 Flow Rate FiO2 06/24/17 12:00 97.4 111 18 147/78 (101) 96 06/24/17 08:15 91 Nasal Cannula 1.50 06/24/17 08:00 98.0 113 18 171/94 (119) 97 06/24/17 04:45 86 06/24/17 04:00 97.5 106 18 138/72 (94) 95 06/24/17 01:21 89 06/24/17 00:00 97.8 92 18 140/65 (90) 92 06/23/17 20:00 98.2 98 18 131/65 (87) 94 Constitutional Vital Signs Date Time Temp Pulse Resp B/P (MAP) Pulse Ox O2 Delivery O2 Flow Rate FiO2 06/24/17 12:00 97.4 111 18 147/78 (101) 96 06/24/17 08:15 91 Nasal Cannula 1.50 06/24/17 08:00 98.0 113 18 171/94 (119) 97 06/24/17 04:45 86 06/24/17 04:00 97.5 106 18 138/72 (94) 95 06/24/17 01:21 89 06/24/17 00:00 97.8 92 18 140/65 (90) 92 06/23/17 20:00 98.2 98 18 131/65 (87) 94 (Kristy Massey) Physical Exam Mr Kuhn is alert, awake and oriented to time, place and person. Speech is fluent. Cervical wound with optifoam dressing. Cranial nerve examination: pupils to be equal, round, and reactive to light. Extra-ocular movements are intact. Facial motor are normal and symmetrical. Sternocleidomastoid and trapezius muscles have normal and symmetrical strength. Other cranial nerves are intact. 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 In the lower extremities, strength is 5/5 in both iliopsoas, quadriceps, hamstrings, plantar flexion, dorsiflexion. (Kristy Massey) Medications Current Medications Current Medications Medications (Trade) Dose Ordered Sig/Ryan Route PRN Reason Start Time Stop Time Status Last Admin Dose Admin Acetaminophen (Tylenol) 650 mg Q4H PRN PO headache/fever 06/18/17 23:45 06/20/17 10:31 Naloxone HCl (Narcan Inj) 0.4 mg UNSCH PRN IV PUSH SEE LABEL COMMENTS 06/18/17 23:45 Clonidine (Catapres) 0.2 mg Q6H PRN PO SBP>160, DBP>90 06/19/17 01:15 Nebivolol (Bystolic) 5 mg DAILY PO 06/19/17 09:00 06/24/17 09:48 Pravastatin Sodium (Pravachol) 20 mg HS PO 06/19/17 21:00 06/23/17 21:36 Metoprolol Tartrate (Lopressor) 25 mg [place]ISH[place] BALANCE SCREWHEAD PRN PO SEE LABEL COMMENTS 06/22/17 11:45 06/25/17 11:44 Povidone Iodine (Betadine 5% Antisepsis Kit) 1 applic POLISH[place] BALANCE SCREWHEAD PRN EACH NARE SEE LABEL COMMENTS 06/22/17 11:45 06/25/17 11:44 Chlorhexidine Gluconate (Chlorhexidine 2% Cloth) 3 pack [place] [employer] SCREWHEAD PRN TOPICAL SEE LABEL COMMENTS 06/22/17 11:45 06/25/17 11:44 06/22/17 13:00 Insulin Human Regular (NovoLIN R INJ) See Protocol Table ... POLISH[place] BALANCE SCREWHEAD PRN SQ SEE PROTOCOL TABLE 06/22/17 11:45 06/25/17 11:44 Sodium Chloride 1,000 ml @ 100 mls/hr Q10H IV 06/23/17 11:48 06/23/17 21:38 IV Flush (NS Flush) 2 ml UNSCH PRN IVF FLUSH AFTER USING IV ACCESS 06/23/17 12:00 IV Flush (NS Flush) 2 ml BID IVF 06/23/17 21:00 06/23/17 21:00 Bisacodyl (Dulcolax Supp) 10 mg DAILY PRN RECTAL SEVERE CONSTIPATION 06/23/17 12:00 Docusate Sodium (Colace) 100 mg BID PO 06/23/17 21:00 06/24/17 09:48 Magnesium Hydroxide (Milk Of Magnesia Liq) 30 ml DAILY PRN PO MILD TO MODERATE CONSTIPATION 06/23/17 12:00 Pantoprazole Sodium (Protonix) 40 mg DAILY PO 06/24/17 09:00 06/24/17 08:05 Ondansetron HCl (Zofran Inj) 4 mg Q6H PRN IV PUSH NAUSEA OR VOMITING 06/23/17 12:00 Acetaminophen/ Hydrocodone Bitart ([place] 10-325 Mg) 1 tab Q4H PRN PO PAIN SCALE 1 TO 5 06/23/17 12:00 06/24/17 04:12 Acetaminophen/ Hydrocodone Bitart ([place] 10-325 Mg) 2 tab Q4H PRN PO PAIN SCALE 6 TO 10 06/23/17 12:00 06/24/17 13:58 Morphine Sulfate (Morphine Inj) 2 mg Q2H PRN IV PUSH PAIN SCALE 1 TO 6 06/23/17 12:00 Morphine Sulfate (Morphine Inj) 4 mg Q2H PRN IV PUSH PAIN SCALE 7 TO 10 06/23/17 12:00 Cyclobenzaprine HCl (Flexeril) 10 mg Q8H PRN PO MUSCLE SPASM 06/23/17 12:00 06/24/17 13:58 Dexamethasone Sodium Phosphate (Decadron Inj) 4 mg Q6H IV PUSH 06/23/17 15:00 06/24/17 08:06 Menthol ([place] Venancio) 1 lozenge UNSCH PRN BUCCAL SORE THROAT 06/23/17 12:00 Albuterol Sulfate (Albuterol Neb) 2.5 mg Q4HR NEB PRN INH WHEEZING 06/23/17 12:00 06/24/17 08:14 Chlorhexidine Gluconate (Hibiclens 4% Top Soln) 1 applic HS TOP 06/23/17 21:00 06/25/17 21:01 Albuterol Sulfate (Albuterol Concentrated Neb) 2.5 mg Q4HR NEB NEB 06/23/17 16:00 06/24/17 16:00 (Kristy Massey) Medical Decision Making MDM Remarks 47 year old male, upper extremity weakness, multilevel spinal stenosis worse at C5-6, s/p C5-6 ACDF 06/23/17 (Kristy Massey) Plan Plan Remarks cont [place] collar, ok to remove when eating OT, PT, start mobilizing OOB nonchemical dvt prophylaxis (Kristy Massey) Attending Statement The exam, history, and the medical decision-making described in the above note were completed with the assistance of the mid-level provider. I reviewed and agree with the findings presented. I attest that I had a [id number] encounter with the patient on the same day, and personally performed and documented my assessment and findings in the medical record. (Se De Luna MD) Kristy Massey Jun 24, 2017 16:47 Se De Luna MD Jun 24, 2017 21:09
[2017-06-24] MEDS: CHLORHEXIDINE GLUCONATE 4% SOLN 120 ML BTL TOP SCH (21:00)
[2017-06-24] MEDS: PRAVASTATIN SOD 20 MG TAB PO SCH (21:27)
[2017-06-25] VITALS (7 sets, daily range): BP systolic 136–155; BP diastolic 67–86; PULSE 81–97; RESP 19–20; TEMP 97.5–98.5; O2SAT 94–96
[2017-06-25] MEDS: RESP: ALBUTEROL CONC 2.5 MG/0.5 ML NEB NEB SCH ×6 (00:42→21:13)
[2017-06-25] MEDS: SODIUM CHLOR 0.9% 1000 ML INJ 1,000 ML IV SCH ×3 (03:48→22:28)
[2017-06-25] MEDS: ACETAMINOPHEN/HYDROcodone 325 MG/10 MG TAB PO PRN ×4 (03:53→17:50)
[2017-06-25] MEDS: DEXAMETHASONE SOD PHOS 4 MG/ML VIAL IV PUSH SCH ×4 (03:53→22:22)
[2017-06-25] MEDS: PANTOPRAZOLE SOD 40 MG DELAYED RELEASE TAB PO SCH (08:14)
[2017-06-25] MEDS: DOCUSATE SODIUM 100 MG CAP PO SCH ×2 (08:14→22:22)
[2017-06-25] MEDS: NEBIVOLOL 5 MG TAB PO SCH (08:21)
[2017-06-25] MEDS: CYCLOBENZAPRINE HCL 10 MG TAB PO PRN (08:21)
[2017-06-25] MEDS: SODIUM CHLORIDE 0.9% FLUSH 5 ML FLUSH IVF SCH ×2 (08:25→21:00)
--- NOTE | 2017-06-25 12:07 | HHI.PR ---
Subjective Remarks The patient said that his gait was unstable. He said that his left upper extremity would droop down when walking. He was wondering about wearing a halo when in bed because his neck constantly wants to flex. Discussed with family at the bedside. Objective Vitals Vital Signs Date Time Temp Pulse Resp B/P (MAP) Pulse Ox O2 Delivery O2 Flow Rate FiO2 06/25/17 08:00 98.3 94 20 155/86 (109) 95 06/25/17 07:33 96 21 06/25/17 04:00 97.5 89 20 136/67 (90) 94 06/25/17 00:00 98.5 91 19 148/81 (103) 95 06/24/17 20:34 95 21 06/24/17 20:00 97.9 70 20 134/70 (91) 93 06/24/17 18:48 20 06/24/17 16:00 98.3 85 18 150/71 (97) 95 I/O 06/24/17 06/24/17 06/24/17 06/25/17 06/25/17 06/25/17 07:00 15:00 23:00 07:00 15:00 23:00 Intake Total 154 ml 50 ml 240 ml Balance 154 ml 50 ml 240 ml Intake Oral 240 ml IV Total 154 ml 50 ml # Voids 3 2 1 Result Diagram: 06/24/1715 06/24/17914 Imaging Last Impressions Chest X-Ray 06/24/17 0000 Signed Impressions: Service Date/Time: June 11:52 - CONCLUSION: Trace bibasilar atelectasis. Gelacio Kunz MD Cervical Spine X-Ray 06/23/17 0000 Signed Impressions: Service Date/Time: Friday, June 23, 2017 08:56 - CONCLUSION: Satisfactory appearance of cervical fusion hardware Gelacio Saucedo MD Upper Extremity Ultrasound 06/22/17 0000 Signed Impressions: Service Date/Time: Thursday, June 22, 2017 09:01 - CONCLUSION: 1. No sonographic evidence for right upper extremity DVT. Tacos Enciso MD Cervical Spine MRI 06/19/17 0000 Signed Impressions: Service Date/Time: Monday, June 19, 2017 11:34 - CONCLUSION: 1. Multilevel cervical spine degenerative changes as detailed above. 2. High- grade bilateral foraminal stenosis at C5/C6. Also considerable right foraminal stenosis at C6/C7. 3. Mild to moderate spinal stenosis at C5/C6 and mild spinal stenosis at C3/C4, C4/C5 and C6/C7. No cord compression in the imaged position but there is patchy cord edema and/or myelomalacia from C3/C4 through C7/T1. 4. Marrow edema and reactive enhancement of the vertebral body endplates from C3/C4-C6/C7. No fracture or subluxation. 5. Incidentally seen marked tortuosity of the internal carotid arteries. Gelacio Kunz MD Neck CTA 06/18/17 1620 Signed Impressions: Service Date/Time: Sunday, June 18, 2017 17:43 - CONCLUSION: Normal examination. Diogenes Mata MD Head CTA 06/18/17 1620 Signed Impressions: Service Date/Time: Sunday, June 18, 2017 17:43 - CONCLUSION: Normal examination. Diogenes Mata MD Head CT 06/18/17 1532 Signed Impressions: Service Date/Time: Sunday, June 18, 2017 17:39 - CONCLUSION: 1. No evidence of acute intracranial pathology. No masses are identified. Jose Francisco Palencia MD Objective Remarks GENERAL: Well-nourished, well-developed middle aged male patient in NAD. Awake and alert. is at the bedside. SKIN: Warm and dry. No rash. HEENT: Normocephalic. Atraumatic. EOMI. Mucous membranes pink and moist. NECK: Supple. Trachea midline. Nontender. In collar. CARDIOVASCULAR: Regular rate and rhythm. S1, S2 noted. No murmur appreciated. RESPIRATORY: Nonlabored. Clear to auscultation. Breath sounds equal bilaterally. GASTROINTESTINAL: Abdomen soft, non-tender, nondistended. Normoactive bowel sounds x4. MUSCULOSKELETAL: No obvious deformities. Extremities without clubbing or cyanosis. (+)mild nonpitting edema noted in the right hand. NEUROLOGICAL: Awake and alert. No obvious cranial nerve deficits. 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 5/5 muscle strength in bilateral lower extremities. Bilateral upper and lower extremity sensation equal and intact. Normal speech. No pronator drift. No facial droop, lid lag, tongue deviation. PSYCHIATRIC: Appropriate mood and affect; insight and judgment normal. Procedures C5-6 anterior cervical discectomy, interbody arthrodesis using peek cage filled with autologous bone graft, C5-C6 instrumented fixation using simplicity plate and screws 06/23 Medications and IVs Current Medications Medications (Trade) Dose Ordered Sig/Rayn Route Start Time Stop Time Status Last Admin (Tylenol) 650 mg Q4H PRN PO 06/18/17 23:45 06/20/17 10:31 (Narcan Inj) 0.4 mg UNSCH PRN IV PUSH 06/18/17 23:45 (Catapres) 0.2 mg Q6H PRN PO 06/19/17 01:15 (Bystolic) 5 mg DAILY PO 06/19/17 09:00 06/25/17 08:21 (Pravachol) 20 mg HS PO 06/19/17 21:00 06/24/17 21:27 Sodium Chloride 1,000 ml @ 100 mls/hr Q10H IV 06/23/17 11:48 06/23/17 21:38 (NS Flush) 2 ml UNSCH PRN IVF 06/23/17 12:00 (NS Flush) 2 ml BID IVF 06/23/17 21:00 06/25/17 08:25 (Dulcolax Supp) 10 mg DAILY PRN RECTAL 06/23/17 12:00 (Colace) 100 mg BID PO 06/23/17 21:00 06/25/17 08:14 (Milk Of Magnesia Liq) 30 ml DAILY PRN PO 06/23/17 12:00 (Protonix) 40 mg DAILY PO 06/24/17 09:00 06/25/17 08:14 (Zofran Inj) 4 mg Q6H PRN IV PUSH 06/23/17 12:00 ([place] 10-325 Mg) 1 tab Q4H PRN PO 06/23/17 12:00 06/25/17 03:53 ([place] 10-325 Mg) 2 tab Q4H PRN PO 06/23/17 12:00 06/25/17 08:21 (Morphine Inj) 2 mg Q2H PRN IV PUSH 06/23/17 12:00 (Morphine Inj) 4 mg Q2H PRN IV PUSH 06/23/17 12:00 (Flexeril) 10 mg Q8H PRN PO 06/23/17 12:00 06/25/17 08:21 (Decadron Inj) 4 mg Q6H IV PUSH 06/23/17 15:00 06/25/17 08:22 ([place] Venancio) 1 lozenge UNSCH PRN BUCCAL 06/23/17 12:00 (Albuterol Neb) 2.5 mg Q4HR NEB PRN INH 06/23/17 12:00 06/24/17 20:31 (Hibiclens 4% Top Soln) 1 applic HS TOP 06/23/17 21:00 06/25/17 21:01 06/24/17 21:00 (Albuterol Concentrated Neb) 2.5 mg Q4HR NEB NEB 06/23/17 16:00 06/25/17 11:42 A/P Problem List: (1) Bilateral arm weakness ICD Code: R29.898 - Other symptoms and signs involving the musculoskeletal system Status: Acute Assessment and Plan 47-year-old male with no significant past medical history presents with a 1 day history of bilateral upper extremity weakness and numbness Cervical Myelopathy with Bilateral Upper Extremity Weakness/Numbness: rule out CVA vs cervical spine etiology. Head CT and Head/Neck CTA images reviewed, no acute findings. C-spine MRI images reviewed, shows high-grade bilateral foraminal stenosis at C5/C6; considerable right foraminal stenosis at C6/C7; Mild to moderate spinal stenosis at C5/C6 and mild spinal stenosis at C3/C4, C4/ C5 and C6/C7; No cord compression in the imaged position but there is patchy cord edema and/or myelomalacia from C3/C4 through C7/T1; Marrow edema and reactive enhancement of the vertebral body endplates from C3/C4-C6/C7; No fracture or subluxation. -Consult neurology, appreciate recommendations from Dr. Rodríguez -Continue neuro checks -Consult PT/OT, recommends [facility] -Consult neurosurgery, s/p C5 6 anterior cervical discectomy, interbody arthrodesis using peek cage filled with autologous bone graft, C5-C6 instrumented fixation using simplicity plate and screws 06/23. Further management per NS. Dysphagia The patient complains of having a hard time drinking Coke. Oxygen saturation has been slightly low. CXR unremarkable. - follow up with speech therapy. - Oxygen and nebs as needed. RUE edema -mild -suspect due to cervical nerve impingement -obtain RUE duplex US to r/o DVT. Negative. Accelerated Hypertension: BP 190/109 in the ED. Patient denies history of hypertension at home although BP has been elevated here, possibly stress/ hospital induced. -patient started on Bystolic 5mg qd. Continue. Stable. -continue to monitor BP, adjust antihypertensive as needed -continue clonidine prn -needs outpatient f/up with PCP Hyperlipidemia: lipid panel revealed elevated cholesterol 212 and LDL 141 -started on pravastatin 20mg hs. Continue -needs outpatient f/up with PCP DVT Prophylaxis: teds/SCDs Discharge Planning Per neurosurgery Elmer Fernandez DO Jun 25, 2017 12:07
[2017-06-25] MEDS: CHLORHEXIDINE GLUCONATE 4% SOLN 120 ML BTL TOP SCH (21:00)
[2017-06-25] MEDS: PRAVASTATIN SOD 20 MG TAB PO SCH (22:22)
[2017-06-26] VITALS (7 sets, daily range): BP systolic 139–162; BP diastolic 70–92; PULSE 73–90; RESP 17–20; TEMP 97.6–98.5; O2SAT 92–97
[2017-06-26] MEDS: RESP: ALBUTEROL CONC 2.5 MG/0.5 ML NEB NEB SCH ×4 (01:17→13:00)
[2017-06-26] MEDS: DEXAMETHASONE SOD PHOS 4 MG/ML VIAL IV PUSH SCH ×2 (03:00→09:29)
[2017-06-26] MEDS: ACETAMINOPHEN 325 MG TAB PO PRN (06:27)
[2017-06-26] MEDS: SODIUM CHLORIDE 0.9% FLUSH 5 ML FLUSH IVF SCH (09:00)
[2017-06-26] MEDS: DOCUSATE SODIUM 100 MG CAP PO SCH (09:28)
[2017-06-26] MEDS: PANTOPRAZOLE SOD 40 MG DELAYED RELEASE TAB PO SCH (09:28)
[2017-06-26] MEDS: NEBIVOLOL 5 MG TAB PO SCH (09:28)
[2017-06-26] MEDS: SODIUM CHLOR 0.9% 1000 ML INJ 1,000 ML IV SCH (09:30)
[2017-06-26] MEDS ORDERED: CYCL10TA PO (10:02)
[2017-06-26] MEDS ORDERED: DEXA2TAB PO (10:02)
[2017-06-26] MEDS ORDERED: BYST5TAB2 PO (10:02)
[2017-06-26] MEDS ORDERED: PRAV20TA PO (10:02)
[2017-06-26] MEDS ORDERED: HYDR-3583 PO (10:02)
--- NOTE | 2017-06-26 10:04 | HHI.DCPOC ---
Discharge Care Plan Diagnosis: (1) Bilateral arm weakness (2) Spinal stenosis Goals to Promote Your Health * To prevent worsening of your condition and complications * To maintain your health at the optimal level Directions to Meet Your Goals Take your medications as prescribed Follow your dietary instruction Follow activity as directed Keep your appointments as scheduled Take your immunizations and boosters as scheduled If your symptoms worsen call your PCP, if no PCP go to Urgent Care Center or Emergency Room Smoking is Dangerous to Your Health. Avoid second hand smoke Call the 24-hour hour crisis hotline for domestic abuse at Elmer Fernandez DO Jun 26, 2017 10:04
--- NOTE | 2017-06-26 10:12 | HHI.DS ---
Discharge Summary Admission Date Jun 20, 2017 at 08:07 Discharge Date: Jun 26, 2017 Admitting Diagnosis Bilateral arm weakness (1) Bilateral arm weakness ICD Code: R29.898 - Other symptoms and signs involving the musculoskeletal system Diagnosis: Principal Status: Acute (2) Spinal stenosis ICD Code: M48.00 - Spinal stenosis, site unspecified Diagnosis: Principal Procedures C5-6 anterior cervical discectomy, interbody arthrodesis using peek cage filled with autologous bone graft, C5-C6 instrumented fixation using simplicity plate and screws 06/23 Brief History - From Admission 47-year-old male presents with a 1 day history of bilateral upper extremity weakness. The patient states that around 6:30 yesterday morning he started having sharp pains in his bilateral shoulders which has occurred before. He then states that he noticed that both of his hands and forearms became weak and he was no longer able to lift anything or close his hands. This is a new symptom for him. 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 He reports the pain in his shoulders is still present. CBC/BMP: 06/24/17 0915 06/24/17 0915 Significant Findings Laboratory Tests Test 06/24/17 09:15 Random Glucose 128 MG/DL (74-106) Estimat Glomerular Filtration Rate 73 ML/MIN (>89) Imaging Last Impressions Chest X-Ray 06/24/17 0000 Signed Impressions: Service Date/Time: June 11:52 - CONCLUSION: Trace bibasilar atelectasis. Gelacio Kunz MD Cervical Spine X-Ray 06/23/17 0000 Signed Impressions: Service Date/Time: Friday, June 23, 2017 08:56 - CONCLUSION: Satisfactory appearance of cervical fusion hardware Gelacio Saucedo MD Upper Extremity Ultrasound 06/22/17 0000 Signed Impressions: Service Date/Time: Thursday, June 22, 2017 09:01 - CONCLUSION: 1. No sonographic evidence for right upper extremity DVT. Tacos Enciso MD Cervical Spine MRI 06/19/17 0000 Signed Impressions: Service Date/Time: Monday, June 19, 2017 11:34 - CONCLUSION: 1. Multilevel cervical spine degenerative changes as detailed above. 2. High- grade bilateral foraminal stenosis at C5/C6. Also considerable right foraminal stenosis at C6/C7. 3. Mild to moderate spinal stenosis at C5/C6 and mild spinal stenosis at C3/C4, C4/C5 and C6/C7. No cord compression in the imaged position but there is patchy cord edema and/or myelomalacia from C3/C4 through C7/T1. 4. Marrow edema and reactive enhancement of the vertebral body endplates from C3/C4-C6/C7. No fracture or subluxation. 5. Incidentally seen marked tortuosity of the internal carotid arteries. Gelacio Kunz MD Neck CTA 06/18/17 1620 Signed Impressions: Service Date/Time: Sunday, June 18, 2017 17:43 - CONCLUSION: Normal examination. Diogenes Mata MD Head CTA 06/18/17 1620 Signed Impressions: Service Date/Time: Sunday, June 18, 2017 17:43 - CONCLUSION: Normal examination. Diogenes Mata MD Head CT 06/18/17 1532 Signed Impressions: Service Date/Time: Sunday, June 18, 2017 17:39 - CONCLUSION: 1. No evidence of acute intracranial pathology. No masses are identified. Jose Francisco Palencia MD PE at Discharge GENERAL: Well-nourished, well-developed middle aged male patient in NAD. Awake and alert. is at the bedside. SKIN: Warm and dry. No rash. HEENT: Normocephalic. Atraumatic. EOMI. Mucous membranes pink and moist. NECK: Supple. Trachea midline. Nontender. In collar. CARDIOVASCULAR: Regular rate and rhythm. S1, S2 noted. No murmur appreciated. RESPIRATORY: Nonlabored. Clear to auscultation. Breath sounds equal bilaterally. GASTROINTESTINAL: Abdomen soft, non-tender, nondistended. Normoactive bowel sounds x4. MUSCULOSKELETAL: No obvious deformities. Extremities without clubbing or cyanosis. (+)mild nonpitting edema noted in the right hand. NEUROLOGICAL: Awake and alert. No obvious cranial nerve deficits. 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 5/5 muscle strength in bilateral lower extremities. Bilateral upper and lower extremity sensation equal and intact. Normal speech. No pronator drift. No facial droop, lid lag, tongue deviation. PSYCHIATRIC: Appropriate mood and affect; insight and judgment normal. Pt update on day of discharge The patient complained of a mild headache. He said that he would like to go home. He said his gait was still a little off. He has been having bowel movements. Discussed with case management. Hospital Course Cervical spinal stenosis 47-year-old male with no significant past medical history presented with a 1 day history of bilateral upper extremity weakness and numbness. Head CT and head / neck CTA images reviewed, no acute findings. C-spine MRI images showed high- grade bilateral foraminal stenosis at C5/C6; considerable right foraminal stenosis at C6/C7; Mild to moderate spinal stenosis at C5/C6 and mild spinal stenosis at C3/C4, C4/C5 and C6/C7; No cord compression in the imaged position but there is patchy cord edema and/or myelomalacia from C3/C4 through C7/T1; Marrow edema and reactive enhancement of the vertebral body endplates from C3/C4 -C6/C7; No fracture or subluxation. Neurology was consulted. We continued neuro checks. The pt worked with PT/OT. We consulted neurosurgery. The pt is s/ p C5 6 anterior cervical discectomy, interbody arthrodesis using peek cage filled with autologous bone graft, C5-C6 instrumented fixation using simplicity plate and screws on 06/23. The pt was cleared for discharge by neurosurgery. He will complete a dexamethasone taper. He will have HHC with nursing and OT arranged. He will take pain meds and muscle relaxers as needed. He will follow up with neurosurgery as an outpt. Dysphagia The patient complained of having a hard time drinking Coke. CXR was unremarkable. He was evaluated by speech therapy. He will advance his diet as tolerated. RUE edema Duplex US was negative for DVT. Accelerated hypertension BP 190/109 in the ED. The patient was started on Bystolic 5mg daily. Stable. Hyperlipidemia Lipid panel revealed elevated cholesterol of 212 and LDL of 141. He was started on pravastatin 20mg hs. He will have outpatient f/up with his PCP. Pt Condition on Discharge: Stable Discharge Disposition: Disch w/ Home Health Serv Discharge Time: > 30 minutes Discharge Instructions DIET: Follow Instructions for: Heart Healthy Diet Speech Therapy-Diet Recommends: Regular Activities you can perform: Weight Bearing as Mayela Follow up Referrals: Neurosurgery - 3-5 Days with Se De Luna MD PCP Follow-up - 1 Week New Medications: Dexamethasone (Dexamethasone) 2 Mg Tab 2 MG PO BID for Weaning off steroids, #4 TAB 0 Refills Cyclobenzaprine (Flexeril) 10 Mg Tab 10 MG PO Q8H PRN for MUSCLE SPASM, #30 TAB Hydrocodone/Acetaminophen (Hydrocodone-Acetamin 10-325 mg) 10 Mg-325 Mg Tablet 1 TAB PO Q4H PRN for PAIN SCALE 1 TO 10, #25 TAB Nebivolol (Bystolic) 5 Mg Tab 5 MG PO DAILY for Blood Pressure Management, #30 TAB Pravastatin (Pravachol) 20 Mg Tab 20 MG PO HS for Cholesterol Management, #30 TAB Discontinued Medications: Aspirin (Aspirin) 325 Mg Tab 325 MG PO DAILY, #30 TAB 0 Refills Elmer Fernandez DO Jun 26, 2017 10:12
--- NOTE | 2017-06-26 11:06 | HHI.FF ---
Face to Face Verification Diagnosis: (1) Bilateral arm weakness (2) Spinal stenosis Occupational Therapy Order: Evaluate and Treat, Improve ADL, Gross motor coordination, Fine motor coordination Home Health Nursing Order: Medical education Signs/symptoms of disease process Medication education-adverse effect Nursing assessment with vital signs I have seen patient Antonio Kuhn on 06/26/17. My clinical findings support the need for the requested home health care services because: Deconditioned w/ increased weakness Limited ability to care for self High risk of falls I certify that my clinical findings support that this patient is homebound because: Post-op weakness Unsteady gait/balance Unsafe to leave home unassisted Elmer Fernandez DO Jun 26, 2017 11:06
--- NOTE | 2017-06-26 11:18 | HHI.NSPN ---
History Interval History This is a 47-year-old male presents with a day history of bilateral upper extremity weakness. The patient states that he developed sharp pains in his bilateral shoulders which has occurred before. He then states that he noticed that both of his hands and forearms became weak and he was no longer able to lift anything or close his hands. This is a new symptom for him. 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 He reports pain in his shoulders He also reports severe lower back pain associated with bilateral upper extremity weakness, right greater than the left. The patient states that he has had episodes of brief short lasting sudden sharp pain for 2 years duration where he would suddenly feel severe pain between the shoulder blades burning in character that lasts 10-15 seconds, tends to radiate down to the both upper extremities followed by mild weakness and typically, "goes away." He usually try to bend over to relieve the pain in the arms. The patient cannot think of any relation or correlation to a certain movement, exercise, dehydration or any other triggering factor. He has a history of neck trauma in the past. He denies chronic neck pain. He only endorses those brief episodes that are infrequent and he states that he talked about it with the primary care physician but being so infrequent made him just not follow it up. The also states that may be sometimes they are stress-related. During the episode the patient other than the pain the patient feels a racing heart. Denies acid reflux, chest pain or profuse sweating during the episode. What made him come yesterday is the episode was recurrent and it was more intense, however short-lived and this was followed by arm weakness, mainly the right upper extremity with pain in the elbow and right hand. He denies sensory symptoms, sphincter control disturbances and he also endorses pain in both shoulders. MRI cervical spine showed cervical spinal stenosis. Neurosurgical consultation was requested. 06/22: no changes, surgery rescheduled for tomorrow morning 06/24: s/p C56 ACDF 06/23. reports to be doing well, 06/26: Mr. MacLellan is awake and alert. No new complaints. 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 Lower extremities 5 over 5. Medical Decision Making Impression and Plan Assessment: Status post C5 6 ACDF for central cord syndrome. Stable postop course. Plan: Patient ready for inpatient rehabilitation. If inpatient rehabilitation is not a possibility and can be discharged home with home healthcare/PT Gage Wasserman MD Jun 26, 2017 11:18
[2017-06-26] MEDS: ACETAMINOPHEN/HYDROcodone 325 MG/10 MG TAB PO PRN (13:11)
== END 2017-06-26 16:05 | disposition home health service (06) | DRG 473 ==
LOC: NEPC 14:52 → NEDA 23:18 → NEPGCP 06-19 04:10 → OBSVTOIN 06-20 08:07 → N05B 06-22 10:45 → NEPFCDU 06-22 13:40 → N05B 06-23 07:33
PROVIDERS: ADMIT Hospitalist; ATTEND Hospitalist
PROC: 0RT30ZZ Resection of Cervical Vertebral Disc, Open Approach (ICD-10-PCS; 2017-06-23)
PROC: 0RG10A0 Fusion of Cervical Vertebral Joint with Interbody Fusion Device, Anterior Approach, Anterior Column, Open Approach (ICD-10-PCS; principal; 2017-06-23 08:08)
DX: M48.02 Spinal stenosis, cervical region (principal); R13.10 Dysphagia, unspecified; I10 Essential (primary) hypertension; E78.5 Hyperlipidemia, unspecified; G89.29 Other chronic pain; M25.511 Pain in right shoulder; M25.512 Pain in left shoulder; M54.12 Radiculopathy, cervical region; I25.10 Atherosclerotic heart disease of native coronary artery without angina pectoris; Z87.891 Personal history of nicotine dependence
CPT/HCPCS: 70450; 70496; 70498; 71010; 71020; 72040; 72156; 76000; 80048; 80061; 80307; 83735; 85025; 85027; 85610; 85730; 93005; 93971; 94150; 94640; 96374; 99211; A9579; C1713; G0378; G0463; G8987-GP; G8988-GP; J0690; J1100; J1170; J1580; J2250; J2270; J2405; J3010; J3370; J7030; J7050; J7120; J7611; J7613; L0150; L0172; Q9967